=== PATIENT | male | born 1955 | race African-American/Black ===

== ENCOUNTER 2022-06-25 11:26 | Day surgery (SDC) | payer OTHER ==
[2022-06-20 13:36] LABS: Hematocrit 38.2 % (39.6-49.0); Lymphocytes % 18.7 % (15.3-44.8); MCV 107.2 fL (80-100); MPV 7.7 fL (7.6-11.3); RBC Red Blood Cell Count 3.57 M/uL (4.33-5.43)
[2022-06-20 13:38] LABS: Protime INR 1.02
[2022-06-20 13:51] LABS: SARS-CoV-2 Antigen Rapid Res Negative (Negative)
[2022-06-20 13:53] LABS: Potassium 5.1 mmol/L (3.5-5.1)
--- NOTE | 2022-06-20 13:56 | RAD REPORT ---
EXAM DESCRIPTION: RAD - Chest Pa And Lat (2 Views) - 06/20/2022 1:43 pm CLINICAL HISTORY: pre op for surgery COMPARISON: Chest Pa And Lat (2 Views) dated 09/19/2017 FINDINGS: Lines: None. Lungs: No evidence of edema or pneumonia. Pleural: No significant pleural effusions or pneumothorax. Cardiac: The heart size is within normal limits. Bones: No acute fractures. Other: IMPRESSION: No acute cardiopulmonary disease.
[2022-06-20 14:03] LABS: Blood Morphology Comment NOTED (NOT SEEN); Platelet Estimate ADEQ; White Blood Cell Scan OK (OK)
[2022-06-20 14:04] LABS: Macrocytosis 1+
--- NOTE | 2022-06-22 06:25 | EKG ---
Test Date: 2022-06-20 Test Time: 12:45:12 Delivery Helper: RORY MEASUREMENT RESULTS: Intervals: Rate: 64 NH: 128 QRSD: 80 QT: 392 QTc: 404 [place]: P: 59 NH: 128 QRS: 6 T: 44 INTERPRETIVE STATEMENTS: Sinus rhythm with premature supraventricular complexes Possible Left atrial enlargement Low voltage QRS Borderline ECG No previous ECG available for comparison Electronically Signed On 06-22-22 06:22:44 CDT by Jl Castillo
[~2022-06-25 11:26] MED LIST: AMPICILLIN SODIUM 2 GM in NA CHLORIDE 0.9% 100 ML IVPB ONE; Gentamicin Inj 160 MG in NA CHLORIDE 0.9% 100 ML IV ONE
[2022-06-25] MEDS ORDERED: NA CHLORIDE 0.9% 1,000 ML ONE (11:53)
[2022-06-25] MEDS ORDERED: ACETAMINOPHEN 500 MG TAB ONE (13:28)
[2022-06-25] MEDS ORDERED: FENTANYL CITR 100 MCG/2 ML ONE ×2 (13:43→14:28)
[2022-06-25] MEDS ORDERED: MIDAZOLAM HCL 2 MG/2 ML INJ ONE (13:43)
[2022-06-25] MEDS ORDERED: LIDOCAINE 1% MPF 5 ML VIAL ONE (13:44)
[2022-06-25] MEDS ORDERED: propofoL 200 MG/20 ML VIAL IV ONE (14:04)
[2022-06-25] MEDS ORDERED: dexAMETHasone 10 MG/ML VIAL ONE (14:27)
[2022-06-25] MEDS ORDERED: ONDANSETRON 4 MG/2 ML VIAL ONE (14:28)
[2022-06-25] MEDS ORDERED: OPIUM/BELLADONNA SUPPOS (30-16.2 MG) PR ONE ×2 (15:29→15:37)
[2022-06-25] MEDS ORDERED: CODEINE 30MG/APAP 300MG TAB PO PRN (15:37)
[2022-06-25] MEDS ORDERED: PHENAZOPYRIDINE 100MG TAB PO ONE (15:37)
[2022-06-25 16:13] VITALS: TEMP 97.1
[2022-06-25 18:24] VITALS: BP 136/81; O2SAT 97
--- NOTE | 2022-06-26 01:27 | OP ---
Surgeon: SHEELA MORALES Preoperative Diagnosis: Benign prostatic hypertrophy with lower urinary tract obstruction and sympto ms. Postoperative Diagnoses: 1.Benign prostatic hypertrophy with lower urinary tract obstruction and symptoms. 2.Bulbar urethral stricture. Principal Procedures: 1.Bipolar transurethral resection of the prostate. 2.Direct vision internal urethrotomy of the bulbar urethral stricture. Indication For Procedure: Mr. Obrien is a 66-year-old gentleman with type 2 diabetes, hypertension, and obstructive sleep apnea with history of multiple spinal fusions who underwent a prostate surgery by Dr. Quiroz over 4-5 years ago, now with persistent bothersome lower urinary symptoms and questionab le microscopic hematuria after evaluation with cystoscopy revealing significant residual apical later al lobar hypertrophy with regrowth of mid prostatic urethral adenoma, but a widely patent bladder nec k with some elevated bladder neck and contracture. He was counseled on the potential benefit to diff erent approaches and ultimately recommended for completion resection TURP. Procedure In Detail: The patient was consented in the preoperative holding area before being transfe rred to the operative suite where general anesthesia was induced. He was given ampicillin 2 g and ge ntamicin 2-3 mg/kg IV antimicrobial prophylaxis and Pneumoboots were provided for DVT prophylaxis. Cleo sidhu was placed in the lithotomy position, padded and secured to the table appropriately. His genitalia were prepped using Hibiclens and he was draped in standard fashion. The case was begun using urethr al sounds to dilate the meatus and fossa navicularis to 30-Uzbek. Then, using the visual obturator and the 26-Uzbek resectoscope, I was able to traverse the urethra, but encountered a point of strict ured narrowing in the bulbar urethra. With pressure, I was able to navigate beyond the urethral stri cture in the bulb and traverse the prostatic urethra before entering the bladder. The stricture was likely approximately 22-Uzbek in diameter. Once within the bladder, I was able to decompress the fl uid and urine and then survey it for any abnormal features. The bladder was free of mucosal lesion, foreign body, or stone. The ureteral orifices were orthotopic in location and the urine was clear. I was able to visualize an elevated bladder neck with a degree of contracture that was likely causing a degree of obstruction; so I began by resecting the elevated bladder neck down to the level of the trigone with the ureteral orifices in direct vision. I then continued the resection down to the leve l of the verumontanum in order to create a smooth trough. Resection was then continued into the righ t lateral lobe and continued at the bladder neck to the anterior zone of the prostate where any overh anging tissue was resected. I then continued the resection again posterolaterally to the apex of the prostate in order to remove any interdigitating lateral lobar hypertrophy there. A similar procedur e was performed on the left side of the prostate and the resection was continued until a smooth widel y patent channel was noted from the verumontanum through to the bladder neck. I then Ellik evacuated all prostate chips from within the bladder, removing any others that did not come out with the Ellik using direct vision. I then performed a careful search for bleeding and fulgurated each and all ble eding vessels throughout the prostatic fossa resection. Continued resection was performed where nece ssary with the bladder completely decompressed and additional adenomatous intrusion into the urethra was noted. Those chips were also Ellik evacuated from the bladder or removed under direct vision, an za I carefully fulgurated any and all bleeding vessels with his bladder completely decompressed. As a result, with his bladder decompressed and no fluid inflow and no ongoing bleeding noted, I then refi lled his bladder and retracted the scope into the bulbar urethra beyond the striated sphincter. The point of strictured narrowing, that had previously been noted, was again identified having been dilat ed by passing the scope; so utilizing the loop and brief bursts of cut activity, I incised the strict ured region using the bipolar loop at the 5 and the 7 o'clock positions, opening the strictured area such that it was widely patent. I was then able to navigate easily beyond the strictured region and enter the bladder, which was left full. I then removed the resectoscope and was able to easily pass a 22-Uzbek 3-way José catheter into his bladder. I placed 30 cc of sterile water in the balloon, a nd the catheter was connected to slow drip CBI. He was then taken out of the lithotomy position, the catheter was placed to moderate traction, and then he was transferred to a stretcher. He was then t ransferred to the recovery room in good condition. Complications: None. Discharge Disposition: He is scheduled for catheter removal on Friday and will subsequently follow u p with me in 3 months unless there are any intervening issues, which require sooner attention after a bout a month of anticipated initial recovery. RODO/WHITNEY Voice ID: [id number] Report ID: [id number]
== END 2022-06-25 17:25 | disposition home or self-care (01) ==
LOC: OR 11:26
PROVIDERS: ATTEND Urology
PROC: 0VT08ZZ Resection of Prostate, Via Natural or Artificial Opening Endoscopic (ICD-10-PCS; principal; 2022-06-25 13:30)
PROC: 0TND8ZZ Release Urethra, Via Natural or Artificial Opening Endoscopic (ICD-10-PCS; 2022-06-25 13:30)
DX: N40.1 Benign prostatic hyperplasia with lower urinary tract symptoms (principal); N35.912 Unspecified bulbous urethral stricture, male; Z20.822 Contact with and (suspected) exposure to COVID-19; I10 Essential (primary) hypertension; E11.9 Type 2 diabetes mellitus without complications; G47.33 Obstructive sleep apnea (adult) (pediatric)
CPT/HCPCS: 93005; 87088; 85025; 87086; 80048; 36415; 85610; 82947; 88305; 71046; 87811; 52601; J2704; J1580; J2250; J3010 ×2; J1100; J7030; J2405; J0290

== ENCOUNTER 2022-11-25 18:04 | Emergency (ER) | payer OTHER ==
--- OUTSIDE RECORDS SUMMARY | 2022-11-25 18:09 | XMS REPORT | Continuity of Care Document ---
:1955 Author Organization [facility] t Address [address] [place] [address] Care Team Providers Name Role Phone Eileen Saenz MD Primary Care Physician Eileen Saenz Attending Clinician Unavailable EVELIO Attending Clinician Unavailable Leo Arias MD Attending Clinician MD LEO ARIAS Attending Clinician Unavailable JOVAN CHAPMAN Attending Clinician Unavailable ESMER ALBA Attending Clinician Unavailable EVELIO Admitting Clinician Unavailable LEO ARIAS Admitting Clinician Unavailable MD LEO ARIAS Admitting Clinician Unavailable Payers Payer Name Policy Type Policy Number Effective Date Expiration Date S sinan [facility] - [id number] [facility] (MEDICARE REPLACEMENT/ADVA NTAGE - PPO) [place] [id number] [facility] [id number] HEALTHCARE (MEDICARE REPLACEMENT/ADVA NTAGE - PPO) Problems Condition Condition Condition Status Onset Resolution Last Treating Co mments Source Name Details Category Date Date Treatment Clinician Date Rib pain Rib Pain Problem Active 2021-12 Sween y 12-02 [facility] 00:[facility]: ty 00 [facility] Osteoarthr Osteoarthr Problem Active S wejulissay itis itis 12-04 [facility]i 00:00: ty 00 [facility] 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 Added automatic ally from request for surgery [id number] Carpal Carpal Disease Active Overview: Method i tunnel tunnel 9-[address] syndrome syndrome 00:00: g of this Hos suzette of left of left 00 note l wrist wrist might be different from the original. Added automatic ally from request for surgery [id number] Pain in Pain in Problem Active [facility] left arm Left Arm 8-02 Commun i 00:00: ty 00 [facility] Clin[facility] Paresthesi Paresthesi Problem Active S weeny a of upper a of Upper 802 Co mmuni limb Limb 00:00: ty 00 [facility] Clin[facility] Post-herpe Post-herpe Problem Active S weeny tic tic 727 Communi neuritis Neuritis 00:00: ty 00 [facility] Clin[facility] Obstructiv Obstructiv Problem Active S weeny e sleep e Sleep 06-26 Communi apnea Apnea 00:00: ty syndrome Syndrome 00 Hospit a l Clinics Hypoxemia Hypoxemia Problem Active [facility] 7-27 [facility] 00:00: ty 00 [facility] Herpes Herpes Problem Active [facility] zoster Zoster 7-12 [facility]i 00:00: ty 00 [facility] Tendinitis Tendinitis Problem Active S weeny 6-16 Communi 00:00: ty 00 [facility] Dyspnea Dyspnea Problem Active [facility] 5-13 [facility]i 00:00: ty 00 [facility] Pain of Pain of Problem Active [facility] left Left 5-03 [facility]i shoulder Shoulder 00:00: ty joint Joint 00 Hospita l Clinics Vitamin D Vitamin D Problem Active [place] deficiency Deficiency 2-02 Co mmuni 00:00: ty 00 [facility] Clin[facility] Screening Screening Problem Active [place] for for 1-27 [facility]i malignant Malignant 00:00: ty neoplasm Neoplasm 00 Hospit a of of l prostate Prostate Clinic s Pain in Pain in Problem Active 2019-12 [facility] lumbar Lumbar 0-12 [facility] spine Spine 00:00: ty 00 [facility]ospita l Clinics Impotence Impotence Problem Active [place] [facility] 5-27 Communi 00:00: ty 00 [facility] Insect Insect Problem Active 2019- [facility] bite - Bite - 5-27 Communi wound Wound 00:00: ty 00 [facility] Cyst of Cyst of Problem Active [facility] face Face 1-15 Communi 00:00: ty 00 [facility] Thoracic Thoracic Problem Active 2018- Sween y back pain Back Pain 0-15 Comm uni 00:00: ty 00 [facility] Left upper Left Upper Problem Active 2019- S weeny quadrant Quadrant 0-02 Commun i pain Pain 00:00: ty 00 [facility] Left flank Left Flank Problem Active 2018- S weeny pain Pain 0-02 Communi 00:00: ty 00 [facility] Malaise Malaise Problem Active [facility] 6-20 Communi 00:00: ty 00 [facility] Right Right Problem Active 2018-0 [facility] flank pain Flank Pain 3-19 Co mmuni 00:00: ty 00 [facility] Degenerati Degenerati Problem Active S weeny on of on of - Communi cervical Cervical 00:00: ty interverte Interverte 00 Ho spita bral disc bral Disc l Clinics Prominent Prominent Problem Active [place] arm veins Arm Veins 9-11 Comm uni 00:00: ty 00 [facility] Type 2 Type 2 Problem Active [facility] diabetes Diabetes 6-20 Commun i mellitus Mellitus 00:00: ty without without 00 [facility] complicati Complicati l on on Clinics Essential Essential Problem Active [place] hypertensi Hypertensi 6-20 Co mmuni on on 00:00: ty 00 [facility] Neck pain Neck Pain Problem Active [place] 6-20 Communi 00:00: ty 00 [facility] Syncope Syncope Problem Active [facility] 6-20 Communi 00:00: ty 00 [facility] [id number] ED Problem Common (erectile Spirit dysfunctio - [facility] n) of [facility] [id number] OAB Problem Common (overactiv Spirit e bladder) - [facility] [id number] Lower Problem Common urinary Spirit tract - [facility] [id number] Urge Problem Common incontinen Spirit ce [facility] [id number] BPH loc w Problem Com mon urin Spirit obs/LUTS [facility] [id number] S/P TURP Problem Comm on Spirit [facility] [id number] Painful Problem Commo n bladder [facility] spasm [facility] Neurogenic Bladder Problem Comm on dysfunctio neurogenes Sp obdulia n of the is [facility] urinary [facility] [id number] Acute Problem Common lower UTI [facility] Wears Wears Disease Active Overview: Method i partial partial Formattin st dentures dentures g of this Hos suzette note l might be different from the original. UPPER Allergies, Adverse Reactions, Alerts This patient has no known allergies or adverse reactions. Family History Family Member Diagnosis Comments Start Date Stop Date Source Natural father Cancer [facility] Social History Social Habit Start Date Stop Date Quantity Comments Source History of Tobacco Common Spirit - Use [facility] Alcohol intake 2021-08-28 2021-08-28 Current drinker Metho dist 00:00:00 00:00:00 of [facility] Alcohol Comment 2021-08-21 2021-08-21 SOCIAL Yarsani 00:00:00 00:00:00 Hospital Tobacco use and 2021-08-16 2021-08-16 Smokeless tobacco Me thodist exposure 00:00:00 00:00:00 non-user Hospital Cigarettes smoked 2021-08-16 2021-08-16 [facility] current (pack per 00:00:00 00:00:00 [facility] l day) - Reported Cigarette 2021-08-16 2021-08-16 Yarsani pack-years 00:00:00 00:00:00 Hospital Sex Ass[birth year] At [birth year] Yarsani 00:00:00 00:00:00 Hospital Smoking Status Start Date Stop Date Source Current Every Day [facility] Smoker Hospital Clinics Never Smoker [facility] nter Ex-smoker 2021-08-16 00:00:00 2021-08-16 [facility] F[facility] Start Stop Current Ordering Indication Dosage Frequency Signature Comments Components Source Medication Medication Date Date Medication? Clinician (SIG) Name Name Ramiro 10 VESIcare 10 2021- No 1{table QD VESIcare MG MG 8-30 11- t} 10 MG 00:00: 00:00 00 :00 VESIcare 10 VESIcare 10 2021- No 1{table QD VESIcare MG MG 8-30 11- t} 10 MG 00:00: 00:00 00 :00 Tadalafil Tadalafil 2022- No Tadalafil 20 MG 20 MG 4-20 - 20 MG 00:00: 00:00 00 :00 Tadalafil Tadalafil 2022- No Tadalafil 20 MG 20 MG 4-20 - 20 MG 00:00: 00:00 00 :00 Flomax 0.4 Flomax 0.4 2021- No 1{capsu QD Flomax 0.4 MG MG 4-20 -15 le} MG 00:00: 00:00 00 :00 ibuprofen-f 2020-12- No 800mg [id number] Take 800 Methodi amotidine 2-27 02-[id number] (Duexis) 00:00: 04:59 3D mouth 3 Hospi ta 800-26.6 mg 00 :00 (three) l tablet times a day for 90 days. gabapentin 2020-12 Yes 100mg QD Take 1 Meth nancy (Neurontin) 1-[address] 100 mg 00:00: (100 mg Hospita capsule 00 total) by l mouth nightly. metFORMIN Yes 1000mg Q.5D Take 1,000 Methodi (GLUCOPHAGE 9-[address] ) 1,000 mg 12:03: mouth 2 Hosp emerson tablet 57 (two) l times a day with meals. SITagliptin Yes 100mg QD Take 100 M ethodi (JANUVIA) 9-[address] 100 MG 12:03: mouth Hospita tablet 57 daily. l losartan Yes 100mg QD Take 100 Meth nancy (COZAAR) 9-[address] 100 MG 12:03: mouth Hospita tablet 57 daily. l amLODIPine Yes 5mg QD Take 5 mg Me thodi (NORVASC) 5 -[address] mg tablet 12:03: daily. Hospit a 57 l cholecalcif Yes 1250ug Q7D Take 1,250 Methodi arvind, 9-[address] vitamin D3, 12:03: mouth once Hospita 10 mcg (400 57 a week. l unit) capsule albuterol Yes 2{puff} Inhale 2 M ethodi (PROAIR 7-[address] HFA) 90 00:00: Hospita mcg/actuati 00 l on inhaler losartan losartan No 1 Q1D losartan S weeny 100 mg 100 mg 05-01 100 mg Communi tablet Take tablet Take 00:00: tablet ty 1 tablet 1 tablet 00 Take 1 Hospi ta every day every day tablet l by oral by oral every day Clin ics route. route. by oral route. carvediloL Yes 25mg Q.5D Take 25 mg M ethodi (COREG) 25 05-[address] MG tablet 00:00: (two) Hospita 00 times a l day. Carvedilol Carvedilol No 1{table BID Carvedilol 25 MG 25 MG t_with_ 25 MG food} Metformin Metformin No 1{table BID Metformin HCl 1000 MG HCl 1000 MG t_with_ HCl 1000 meals} MG Vitamin D3 Vitamin D3 No Vitamin D3 125 MCG 125 MCG 125 MCG (5000 UT) (5000 UT) (5000 UT) amLODIPine amLODIPine No 1{table QD amLODIPine Besylate 5 Besylate 5 t} Besylate 5 MG MG MG Meloxicam Meloxicam No 1{table QD Meloxicam 15 MG 15 MG t} 15 MG Januvia 100 Januvia 100 No 1{table QD Januvia MG MG t} 100 MG Gabapentin Gabapentin No 1{capsu QD Gabapentin 300 MG 300 MG le} 300 MG Meloxicam Meloxicam No 1{table QD Meloxicam 15 MG 15 MG t} 15 MG Gabapentin Gabapentin No 1{capsu QD Gabapentin 300 MG 300 MG le} 300 MG carvedilol carvedilol No carvedilol [facility] 25 mg 25 mg 25 mg Communi tablet Take tablet Take tablet ty 1 tablet 1 tablet Take 1 Hospi ta twice a day twice a day tablet l by oral by oral twice a Clinic s route for route for day by 90 days. 90 days. oral route for 90 days. cholecalcif cholecalcif No 1capsul Q1W cholecalci [facility] arvind arvind e(s) ferol Communi (vitamin (vitamin (vitamin ty D3) 1,250 D3) 1,250 D3) 1,250 Hospita mcg (50,000 mcg (50,000 mcg l unit) unit) (50,000 Clinics capsule capsule unit) Take 1 Take 1 capsule capsule capsule Take 1 every week every week capsule by oral by oral every week route. route. by oral route. Januvia 100 Januvia 100 No Januvia [facility] mg tablet mg tablet 100 mg Com gerry TAKE 1 TAKE 1 tablet ty TABLET BY TABLET BY TAKE 1 Hos suzette MOUTH ONCE MOUTH ONCE TABLET BY l DAILY DAILY MOUTH ONCE Clinics DAILY metformin metformin No metformin [facility] 1,000 mg 1,000 mg 1,000 mg Com gerry tablet TAKE tablet TAKE tablet ty 1 TABLET BY 1 TABLET BY TAKE 1 Hospita MOUTH TWICE MOUTH TWICE TABLET BY l DAILY DAILY MOUTH Clinics TWICE DAILY carvedilol carvedilol No carvedilol [facility] 25 mg 25 mg 25 mg Communi tablet Take tablet Take tablet ty 1 tablet 1 tablet Take 1 Hospi ta twice a day twice a day tablet l by oral by oral twice a Clinic s route for route for day by 90 days. 90 days. oral route for 90 days. cholecalcif cholecalcif No 1capsul Q1W cholecalci [facility] arvind arvind e(s) ferol Communi (vitamin (vitamin (vitamin ty D3) 1,250 D3) 1,250 D3) 1,250 Hospita mcg (50,000 mcg (50,000 mcg l unit) unit) (50,000 Clinics capsule capsule unit) Take 1 Take 1 capsule capsule capsule Take 1 every week every week capsule by oral by oral every week route. route. by oral route. ibuprofen ibuprofen No 1 TID ibuprofen [facility] 800 mg 800 mg 800 mg Communi tablet Take tablet Take tablet ty 1 tablet 3 1 tablet 3 Take 1 H ospita times a day times a day tablet 3 l by oral by oral times a Clinic s route with route with day by meals. meals. oral route with meals. Januvia 100 Januvia 100 No Januvia [facility] mg tablet mg tablet 100 mg Com gerry TAKE 1 TAKE 1 tablet ty TABLET BY TABLET BY TAKE 1 Hos suzette MOUTH ONCE MOUTH ONCE TABLET BY l DAILY DAILY MOUTH ONCE Clinics DAILY metformin metformin No metformin [facility] 1,000 mg 1,000 mg 1,000 mg Com gerry tablet TAKE tablet TAKE tablet ty 1 TABLET BY 1 TABLET BY TAKE 1 Hospita MOUTH TWICE MOUTH TWICE TABLET BY l DAILY DAILY MOUTH Clinics TWICE DAILY Metformin Metformin No 1{table BID Metformin HCl 1000 MG HCl 1000 MG t_with_ HCl 1000 meals} MG carvedilol carvedilol No carvedilol [facility] 25 mg 25 mg 25 mg Communi tablet Take tablet Take tablet ty 1 tablet 1 tablet Take 1 Hospi ta twice a day twice a day tablet l by oral by oral twice a Clinic s route for route for day by 90 days. 90 days. oral route for 90 days. cholecalcif cholecalcif No 1capsul Q1W cholecalci [facility] arvind arvind e(s) ferol Communi (vitamin (vitamin (vitamin ty D3) 1,250 D3) 1,250 D3) 1,250 Hospita mcg (50,000 mcg (50,000 mcg l unit) unit) (50,000 Clinics capsule capsule unit) Take 1 Take 1 capsule capsule capsule Take 1 every week every week capsule by oral by oral every week route. route. by oral route. ibuprofen ibuprofen No ibuprofen [facility] 800 mg 800 mg 800 mg [facility]i tablet TAKE tablet TAKE tablet ty 1 TABLET BY 1 TABLET BY TAKE 1 Hospita MOUTH THREE MOUTH THREE TABLET BY l TIMES DAILY TIMES DAILY MOUTH Clinics WITH MEALS WITH MEALS THREE TIMES DAILY WITH MEALS Januvia 100 Januvia 100 No Januvia [facility] mg tablet mg tablet 100 mg Com gerry TAKE 1 TAKE 1 tablet ty TABLET BY TABLET BY TAKE 1 Hos suzette MOUTH ONCE MOUTH ONCE TABLET BY l DAILY DAILY MOUTH ONCE Clinics DAILY metformin metformin No metformin [facility] 1,000 mg 1,000 mg 1,000 mg Com gerry tablet TAKE tablet TAKE tablet ty 1 TABLET BY 1 TABLET BY TAKE 1 Hospita MOUTH TWICE MOUTH TWICE TABLET BY l DAILY DAILY MOUTH Clinics TWICE DAILY carvedilol carvedilol No carvedilol [facility] 25 mg 25 mg 25 mg Communi tablet Take tablet Take tablet ty 1 tablet 1 tablet Take 1 Hospi ta twice a day twice a day tablet l by oral by oral twice a Clinic s route for route for day by 90 days. 90 days. oral route for 90 days. cholecalcif cholecalcif No 1capsul Q1W cholecalci [facility] arvind arvind e(s) ferol Communi (vitamin (vitamin (vitamin ty D3) 1,250 D3) 1,250 D3) 1,250 Hospita mcg (50,000 mcg (50,000 mcg l unit) unit) (50,000 Clinics capsule capsule unit) Take 1 Take 1 capsule capsule capsule Take 1 every week every week capsule by oral by oral every week route. route. by oral route. ibuprofen ibuprofen No ibuprofen [facility] 800 mg 800 mg 800 mg [facility]i tablet TAKE tablet TAKE tablet ty 1 TABLET BY 1 TABLET BY TAKE 1 Hospita MOUTH THREE MOUTH THREE TABLET BY l TIMES DAILY TIMES DAILY MOUTH Clinics WITH MEALS WITH MEALS THREE TIMES DAILY WITH MEALS Januvia 100 Januvia 100 No Januvia [facility] mg tablet mg tablet 100 mg Com gerry TAKE 1 TAKE 1 tablet ty TABLET BY TABLET BY TAKE 1 Hos suzette MOUTH ONCE MOUTH ONCE TABLET BY l DAILY DAILY MOUTH ONCE Clinics DAILY Medrol Medrol No Medrol [facility] (Michael) 4 mg (Michael) 4 mg (Michael) 4 mg Communi tablets in tablets in tablets in ty a dose pack a dose pack a dose Hospita as directed as directed pack as l directed Clinics Carvedilol Carvedilol No 1{table BID Carvedilol 25 MG 25 MG t_with_ 25 MG food} metformin metformin No metformin [facility] 1,000 mg 1,000 mg 1,000 mg Com gerry tablet TAKE tablet TAKE tablet ty 1 TABLET BY 1 TABLET BY TAKE 1 Hospita MOUTH TWICE MOUTH TWICE TABLET BY l DAILY DAILY MOUTH Clinics TWICE DAILY Zanaflex 4 Zanaflex 4 No 1capsul Q6H Zanaflex 4 [facility] mg capsule mg capsule e(s) mg capsule Communi Take 1 Take 1 Take 1 ty capsule capsule capsule Hospit a every 6 every 6 every 6 l hours by hours by hours by Cli nics oral route oral route oral route as needed. as needed. as needed. carvedilol carvedilol No carvedilol [facility] 25 mg 25 mg 25 mg Communi tablet TAKE tablet TAKE tablet ty 1 TABLET BY 1 TABLET BY TAKE 1 Hospita MOUTH TWICE MOUTH TWICE TABLET BY l DAILY DAILY MOUTH Clinics TWICE DAILY cholecalcif cholecalcif No 1capsul Q1W cholecalci [facility] arvind arvind e(s) ferol Communi (vitamin (vitamin (vitamin ty D3) 1,250 D3) 1,250 D3) 1,250 Hospita mcg (50,000 mcg (50,000 mcg l unit) unit) (50,000 Clinics capsule capsule unit) Take 1 Take 1 capsule capsule capsule Take 1 every week every week capsule by oral by oral every week route. route. by oral route. ibuprofen ibuprofen No ibuprofen [facility] 800 mg 800 mg 800 mg Communi tablet TAKE tablet TAKE tablet ty 1 TABLET BY 1 TABLET BY TAKE 1 Hospita MOUTH THREE MOUTH THREE TABLET BY l TIMES DAILY TIMES DAILY MOUTH Clinics WITH MEALS WITH MEALS THREE TIMES DAILY WITH MEALS Januvia 100 Januvia 100 No Januvia [facility] mg tablet mg tablet 100 mg Com gerry TAKE 1 TAKE 1 tablet ty TABLET BY TABLET BY TAKE 1 Hos suzette MOUTH ONCE MOUTH ONCE TABLET BY l DAILY DAILY MOUTH ONCE Clinics DAILY losartan losartan No losartan [place] 100 mg 100 mg 100 mg Communi tablet TAKE tablet TAKE tablet ty 1 TABLET BY 1 TABLET BY TAKE 1 Hospita MOUTH ONCE MOUTH ONCE TABLET BY l DAILY FOR DAILY FOR MOUTH ONCE Clinics 90 DAYS 90 DAYS DAILY FOR 90 DAYS metformin metformin No metformin [facility] 1,000 mg 1,000 mg 1,000 mg Com gerry tablet TAKE tablet TAKE tablet ty 1 TABLET BY 1 TABLET BY TAKE 1 Hospita MOUTH TWICE MOUTH TWICE TABLET BY l DAILY DAILY MOUTH Clinics TWICE DAILY tizanidine tizanidine No tizanidine [facility] 4 mg 4 mg 4 mg Communi capsule capsule capsule ty TAKE 1 TAKE 1 TAKE 1 Hospita CAPSULE BY CAPSULE BY CAPSULE BY l MOUTH EVERY MOUTH EVERY MOUTH Clinics 6 HOURS 6 HOURS EVERY 6 NEEDED NEEDED HOURS NEEDED acetaminoph acetaminoph No 1 Q6H acetaminop [facility] en 300 en 300 hen 300 Communi mg-codeine mg-codeine mg-codeine ty 30 mg 30 mg 30 mg Hospita tablet Take tablet Take tablet l 1 tablet 1 tablet Take 1 Clini cs every 6 every 6 tablet hours by hours by every 6 oral route oral route hours by as needed. as needed. oral route as needed. Januvia 100 Januvia 100 No 1{table QD Januvia MG MG t} 100 MG carvedilol carvedilol No carvedilol [facility] 25 mg 25 mg 25 mg Communi tablet TAKE tablet TAKE tablet ty 1 TABLET BY 1 TABLET BY TAKE 1 Hospita MOUTH TWICE MOUTH TWICE TABLET BY l DAILY DAILY MOUTH Clinics TWICE DAILY cholecalcif cholecalcif No 1capsul Q1W cholecalci [facility] arvind arvind e(s) ferol Velma (vitamin (vitamin (vitamin ty D3) 1,250 D3) 1,250 D3) 1,250 Hospita mcg (50,000 mcg (50,000 mcg l unit) unit) (50,000 Clinics capsule capsule unit) Take 1 Take 1 capsule capsule capsule Take 1 every week every week capsule by oral by oral every week route. route. by oral route. gabapentin gabapentin No gabapentin [facility] 300 mg 300 mg 300 mg Communi capsule capsule capsule ty start with start with start with Hospita one a day one a day one a day l at bedtime at bedtime at bedtime Clinics in 5 days in 5 days in 5 days if needed if needed if needed increase to increase to increase bid bid to bid ibuprofen ibuprofen No ibuprofen [facility] 800 mg 800 mg 800 mg Communi tablet TAKE tablet TAKE tablet ty 1 TABLET BY 1 TABLET BY TAKE 1 Hospita MOUTH THREE MOUTH THREE TABLET BY l TIMES DAILY TIMES DAILY MOUTH Clinics WITH MEALS WITH MEALS THREE TIMES DAILY WITH MEALS Januvia 100 Januvia 100 No Januvia [facility] mg tablet mg tablet 100 mg Com gerry TAKE 1 TAKE 1 tablet ty TABLET BY TABLET BY TAKE 1 Hos suzette MOUTH ONCE MOUTH ONCE TABLET BY l DAILY DAILY MOUTH ONCE Clinics DAILY losartan losartan No losartan [place] 100 mg 100 mg 100 mg Communi tablet TAKE tablet TAKE tablet ty 1 TABLET BY 1 TABLET BY TAKE 1 Hospita MOUTH ONCE MOUTH ONCE TABLET BY l DAILY FOR DAILY FOR MOUTH ONCE Clinics 90 DAYS 90 DAYS DAILY FOR 90 DAYS metformin metformin No metformin [facility] 1,000 mg 1,000 mg 1,000 mg Com gerry tablet TAKE tablet TAKE tablet ty 1 TABLET BY 1 TABLET BY TAKE 1 Hospita MOUTH TWICE MOUTH TWICE TABLET BY l DAILY DAILY MOUTH Clinics TWICE DAILY tizanidine tizanidine No tizanidine [facility] 4 mg 4 mg 4 mg Communi capsule capsule capsule ty TAKE 1 TAKE 1 TAKE 1 Hospita CAPSULE BY CAPSULE BY CAPSULE BY l MOUTH EVERY MOUTH EVERY MOUTH Clinics 6 HOURS 6 HOURS EVERY 6 NEEDED NEEDED HOURS NEEDED valacyclovi valacyclovi No 1 Q12H valacyclov [facility] r 1 gram r 1 gram ir 1 gram Co mmuni tablet Take tablet Take tablet ty 1 tablet 1 tablet Take 1 Hospi ta every 12 every 12 tablet l hours by hours by every 12 Cli nics oral route. oral route. hours by oral route. acetaminoph acetaminoph No 1 Q6H acetaminop [facility] en 300 en 300 hen 300 Communi mg-codeine mg-codeine mg-codeine ty 30 mg 30 mg 30 mg Hospita tablet Take tablet Take tablet l 1 tablet 1 tablet Take 1 Clini cs every 6 every 6 tablet hours by hours by every 6 oral route oral route hours by as needed. as needed. oral route as needed. Vitamin D3 Vitamin D3 No Vitamin D3 125 MCG 125 MCG 125 MCG (5000 UT) (5000 UT) (5000 UT) carvedilol carvedilol No carvedilol [facility] 25 mg 25 mg 25 mg Communi tablet TAKE tablet TAKE tablet ty 1 TABLET BY 1 TABLET BY TAKE 1 Hospita MOUTH TWICE MOUTH TWICE TABLET BY l DAILY DAILY MOUTH Clinics TWICE DAILY cholecalcif cholecalcif No 1capsul Q1W cholecalci [facility] arvind arvind e(s) ferol Communi (vitamin (vitamin (vitamin ty D3) 1,250 D3) 1,250 D3) 1,250 Hospita mcg (50,000 mcg (50,000 mcg l unit) unit) (50,000 Clinics capsule capsule unit) Take 1 Take 1 capsule capsule capsule Take 1 every week every week capsule by oral by oral every week route. route. by oral route. gabapentin gabapentin No gabapentin [facility] 300 mg 300 mg 300 mg Communi capsule capsule capsule ty start with start with start with Hospita one a day one a day one a day l at bedtime at bedtime at bedtime Clinics in 5 days in 5 days in 5 days if needed if needed if needed increase to increase to increase bid bid to bid ibuprofen ibuprofen No ibuprofen [facility] 800 mg 800 mg 800 mg [facility]i tablet TAKE tablet TAKE tablet ty 1 TABLET BY 1 TABLET BY TAKE 1 Hospita MOUTH THREE MOUTH THREE TABLET BY l TIMES DAILY TIMES DAILY MOUTH Clinics WITH MEALS WITH MEALS THREE TIMES DAILY WITH MEALS Januvia 100 Januvia 100 No Januvia [facility] mg tablet mg tablet 100 mg Com gerry TAKE 1 TAKE 1 tablet ty TABLET BY TABLET BY TAKE 1 Hos suzette MOUTH ONCE MOUTH ONCE TABLET BY l DAILY DAILY MOUTH ONCE Clinics DAILY losartan losartan No losartan [place] 100 mg 100 mg 100 mg Communi tablet TAKE tablet TAKE tablet ty 1 TABLET BY 1 TABLET BY TAKE 1 Hospita MOUTH ONCE MOUTH ONCE TABLET BY l DAILY FOR DAILY FOR MOUTH ONCE Clinics 90 DAYS 90 DAYS DAILY FOR 90 DAYS metformin metformin No metformin [facility] 1,000 mg 1,000 mg 1,000 mg Com gerry tablet TAKE tablet TAKE tablet ty 1 TABLET BY 1 TABLET BY TAKE 1 Hospita MOUTH TWICE MOUTH TWICE TABLET BY l DAILY DAILY MOUTH Clinics TWICE DAILY tizanidine tizanidine No tizanidine [facility] 4 mg 4 mg 4 mg Communi capsule capsule capsule ty TAKE 1 TAKE 1 TAKE 1 Hospita CAPSULE BY CAPSULE BY CAPSULE BY l MOUTH EVERY MOUTH EVERY MOUTH Clinics 6 HOURS 6 HOURS EVERY 6 NEEDED NEEDED HOURS NEEDED valacyclovi valacyclovi No 1 Q12H valacyclov [facility] r 1 gram r 1 gram ir 1 gram Co mmuni tablet Take tablet Take tablet ty 1 tablet 1 tablet Take 1 Hospi ta every 12 every 12 tablet l hours by hours by every 12 Cli nics oral route. oral route. hours by oral route. acetaminoph acetaminoph No acetaminop [facility] en 300 en 300 hen 300 Communi mg-codeine mg-codeine mg-codeine ty 30 mg 30 mg 30 mg Hospita tablet TAKE tablet TAKE tablet l 1 TABLET BY 1 TABLET BY TAKE 1 Clinics MOUTH EVERY MOUTH EVERY TABLET BY 6 HOURS 6 HOURS MOUTH NEEDED NEEDED EVERY 6 HOURS NEEDED amLODIPine amLODIPine No 1{table QD amLODIPine Besylate 5 Besylate 5 t} Besylate 5 MG MG MG albuterol albuterol No albuterol [facility] sulfate HFA sulfate HFA sulfate Communi 90 90 HFA 90 ty mcg/actuati mcg/actuati mcg/actuat Hospita on aerosol on aerosol ion l inhaler inhaler aerosol Clinic s INHALE 2 INHALE 2 inhaler PUFFS BY PUFFS BY INHALE 2 MOUTH EVERY MOUTH EVERY PUFFS BY 6 HOURS 6 HOURS MOUTH EVERY 6 HOURS carvedilol carvedilol No carvedilol [facility] 25 mg 25 mg 25 mg [facility] tablet TAKE tablet TAKE tablet ty 1 TABLET BY 1 TABLET BY TAKE 1 [facility] MOUTH TWICE MOUTH TWICE TABLET BY l DAILY DAILY MOUTH Clinics TWICE DAILY cholecalcif cholecalcif No 1capsul Q1W cholecalci [facility] arvind arvind e(s) ferol [facility] (vitamin (vitamin (vitamin ty D3) 1,250 D3) 1,250 D3) 1,250 [facility] mcg (50,000 mcg (50,000 mcg l unit) unit) (50,000 Clinics capsule capsule unit) Take 1 Take 1 capsule capsule capsule Take 1 every week every week capsule by oral by oral every week route. route. by oral route. furosemide furosemide No furosemide [facility] 20 mg 20 mg 20 mg [facility] tablet TAKE tablet TAKE tablet ty 1 TABLET BY 1 TABLET BY TAKE 1 [facility] MOUTH ONCE MOUTH ONCE TABLET BY l DAILY DAILY MOUTH ONCE Clinics DAILY gabapentin gabapentin No gabapentin [facility] 300 mg 300 mg 300 mg [facility] capsule 1 capsule 1 capsule 1 ty po am and po am and po am and [facility]osp[facility] afternoon 2 afternoon 2 afternoon l at hs at hs 2 at hs Clinics hydrocodone hydrocodone No 1 Q4H hydrocodon [facility] 10 10 e 10 [facility] mg-acetamin mg-acetamin mg-acetami ty ophen 325 ophen 325 nophen 325 [facility] mg tablet mg tablet mg tablet l Take 1 Take 1 Take 1 Clinics tablet tablet tablet every 4 every 4 every 4 hours by hours by hours by oral route oral route oral route as needed. as needed. as needed. ibuprofen ibuprofen No ibuprofen [facility] 800 mg 800 mg 800 mg [facility] tablet TAKE tablet TAKE tablet ty 1 TABLET BY 1 TABLET BY TAKE 1 [facility] MOUTH THREE MOUTH THREE TABLET BY l TIMES DAILY TIMES DAILY MOUTH Clinics WITH MEALS WITH MEALS THREE TIMES DAILY WITH MEALS Januvia 100 Januvia 100 No Januvia [facility] mg tablet mg tablet 100 mg Com gerry TAKE 1 TAKE 1 tablet ty TABLET BY TABLET BY TAKE 1 [facility] suzette MOUTH ONCE MOUTH ONCE TABLET BY l DAILY DAILY MOUTH ONCE Clinics DAILY losartan losartan No losartan [place] 100 mg 100 mg 100 mg [facility] tablet TAKE tablet TAKE tablet ty 1 TABLET BY 1 TABLET BY TAKE 1 [facility] MOUTH ONCE MOUTH ONCE TABLET BY l DAILY FOR DAILY FOR MOUTH ONCE Clinics 90 DAYS 90 DAYS DAILY FOR 90 DAYS metformin metformin No metformin [facility] 1,000 mg 1,000 mg 1,000 mg Com gerry tablet TAKE tablet TAKE tablet ty 1 TABLET BY 1 TABLET BY TAKE 1 [facility] MOUTH TWICE MOUTH TWICE TABLET BY l DAILY DAILY MOUTH Clinics TWICE DAILY prednisone prednisone No prednisone [facility] 20 mg 20 mg 20 mg [facility] tablet TAKE tablet TAKE tablet ty 2 TABLETS 2 TABLETS TAKE 2 [facility] suzette BY MOUTH BY MOUTH TABLETS BY l ONCE DAILY ONCE DAILY MOUTH ONCE Clinics FOR 4 DAYS FOR 4 DAYS DAILY FOR 4 DAYS tizanidine tizanidine No tizanidine [facility] 4 mg 4 mg 4 mg [facility] capsule capsule capsule ty TAKE 1 TAKE 1 TAKE 1 [facility] CAPSULE BY CAPSULE BY CAPSULE BY l MOUTH EVERY MOUTH EVERY MOUTH Clinics 6 HOURS 6 HOURS EVERY 6 NEEDED NEEDED HOURS NEEDED valacyclovi valacyclovi No valacyclov [facility] r 1 gram r 1 gram ir 1 gram Co [facility] tablet TAKE tablet TAKE tablet ty 1 TABLET BY 1 TABLET BY TAKE 1 [facility] MOUTH EVERY MOUTH EVERY TABLET BY l 12 HOURS 12 HOURS MOUTH Clinic s EVERY 12 HOURS acetaminoph acetaminoph No acetaminop [facility] en 300 en 300 hen 300 [facility] mg-codeine mg-codeine mg-codeine ty 30 mg 30 mg 30 mg [facility] tablet TAKE tablet TAKE tablet l 1 TABLET BY 1 TABLET BY TAKE 1 Clinics MOUTH EVERY MOUTH EVERY TABLET BY 6 HOURS 6 HOURS MOUTH NEEDED NEEDED EVERY 6 HOURS NEEDED albuterol albuterol No albuterol [facility] sulfate HFA sulfate HFA sulfate [facility] 90 90 HFA 90 ty mcg/actuati mcg/actuati mcg/actuat [facility] on aerosol on aerosol ion l inhaler inhaler aerosol [facility] INHALE 2 INHALE 2 inhaler PUFFS BY PUFFS BY INHALE 2 MOUTH EVERY MOUTH EVERY PUFFS BY 6 HOURS 6 HOURS MOUTH EVERY 6 HOURS carvedilol carvedilol No carvedilol [facility] 25 mg 25 mg 25 mg [facility] tablet TAKE tablet TAKE tablet ty 1 TABLET BY 1 TABLET BY TAKE 1 [facility] MOUTH TWICE MOUTH TWICE TABLET BY l DAILY DAILY MOUTH Clinics TWICE DAILY cholecalcif cholecalcif No 1capsul Q1W cholecalci [facility] arvind arvind e(s) ferol [facility] (vitamin (vitamin (vitamin ty D3) 1,250 D3) 1,250 D3) 1,250 [facility] mcg (50,000 mcg (50,000 mcg l unit) unit) (50,000 Clinics capsule capsule unit) Take 1 Take 1 capsule capsule capsule Take 1 every week every week capsule by oral by oral every week route. route. by oral route. furosemide furosemide No furosemide [facility] 20 mg 20 mg 20 mg [facility] tablet TAKE tablet TAKE tablet ty 1 TABLET BY 1 TABLET BY TAKE 1 [facility] MOUTH ONCE MOUTH ONCE TABLET BY l DAILY DAILY MOUTH ONCE Clinics DAILY gabapentin gabapentin No gabapentin [facility] 300 mg 300 mg 300 mg [facility] capsule capsule capsule ty TAKE 1 TAKE 1 TAKE 1 [facility] CAPSULE BY CAPSULE BY CAPSULE BY l MOUTH IN MOUTH IN MOUTH IN Cli nics THE MORNING THE MORNING THE AND IN THE AND IN THE MORNING AFTERNOON AFTERNOON AND IN THE AND 2 AND 2 AFTERNOON CAPSULES AT CAPSULES AT AND 2 BEDTIME BEDTIME CAPSULES AT BEDTIME hydrocodone hydrocodone No hydrocodon [facility] 10 10 e 10 [facility] mg-acetamin mg-acetamin mg-acetami ty ophen 325 ophen 325 nophen 325 [facility] mg tablet mg tablet mg tablet l TAKE 1 TAKE 1 TAKE 1 Clinics TABLET BY TABLET BY TABLET BY MOUTH EVERY MOUTH EVERY MOUTH 4 HOURS 4 HOURS EVERY 4 NEEDED NEEDED HOURS NEEDED ibuprofen ibuprofen No ibuprofen [facility] 800 mg 800 mg 800 mg [facility] tablet TAKE tablet TAKE tablet ty 1 TABLET BY 1 TABLET BY TAKE 1 [facility] MOUTH THREE MOUTH THREE TABLET BY l TIMES DAILY TIMES DAILY MOUTH Clinics WITH MEALS WITH MEALS THREE TIMES DAILY WITH MEALS Januvia 100 Januvia 100 No Januvia [facility] mg tablet mg tablet 100 mg Com gerry TAKE 1 TAKE 1 tablet ty TABLET BY TABLET BY TAKE 1 [facility] suzette MOUTH ONCE MOUTH ONCE TABLET BY l DAILY DAILY MOUTH ONCE Clinics DAILY losartan losartan No losartan [place] 100 mg 100 mg 100 mg [facility] tablet TAKE tablet TAKE tablet ty 1 TABLET BY 1 TABLET BY TAKE 1 [facility] MOUTH ONCE MOUTH ONCE TABLET BY l DAILY FOR DAILY FOR MOUTH ONCE Clinics 90 DAYS 90 DAYS DAILY FOR 90 DAYS metformin metformin No metformin [facility] 1,000 mg 1,000 mg 1,000 mg Com g[facility] tablet TAKE tablet TAKE tablet ty 1 TABLET BY 1 TABLET BY TAKE 1 [facility] MOUTH TWICE MOUTH TWICE TABLET BY l DAILY DAILY MOUTH Clinics TWICE DAILY prednisone prednisone No prednisone [facility] 20 mg 20 mg 20 mg [facility] tablet TAKE tablet TAKE tablet ty 2 TABLETS 2 TABLETS TAKE 2 [facility] suzette BY MOUTH BY MOUTH TABLETS BY l ONCE DAILY ONCE DAILY MOUTH ONCE Clinics FOR 4 DAYS FOR 4 DAYS DAILY FOR 4 DAYS tizanidine tizanidine No tizanidine [facility] 4 mg 4 mg 4 mg [facility] capsule capsule capsule ty TAKE 1 TAKE 1 TAKE 1 [facility] CAPSULE BY CAPSULE BY CAPSULE BY l MOUTH EVERY MOUTH EVERY MOUTH Clinics 6 HOURS 6 HOURS EVERY 6 NEEDED NEEDED HOURS NEEDED valacyclovi valacyclovi No valacyclov [facility] r 1 gram r 1 gram ir 1 gram Co [facility] tablet TAKE tablet TAKE tablet ty 1 TABLET BY 1 TABLET BY TAKE 1 [facility] MOUTH EVERY MOUTH EVERY TABLET BY l 12 HOURS 12 HOURS MOUTH Clinic s EVERY 12 HOURS acetaminoph acetaminoph No acetaminop [facility] en 300 en 300 hen 300 [facility] mg-codeine mg-codeine mg-codeine ty 30 mg 30 mg 30 mg [facility] tablet TAKE tablet TAKE tablet l 1 TABLET BY 1 TABLET BY TAKE 1 Clinics MOUTH EVERY MOUTH EVERY TABLET BY 6 HOURS 6 HOURS MOUTH NEEDED NEEDED EVERY 6 HOURS NEEDED albuterol albuterol No albuterol [facility] sulfate HFA sulfate HFA sulfate [facility] 90 90 HFA 90 ty mcg/actuati mcg/actuati mcg/actuat [facility] on aerosol on aerosol ion l inhaler inhaler aerosol [facility] INHALE 2 INHALE 2 inhaler PUFFS BY PUFFS BY INHALE 2 MOUTH EVERY MOUTH EVERY PUFFS BY 6 HOURS 6 HOURS MOUTH EVERY 6 HOURS carvedilol carvedilol No carvedilol [facility] 25 mg 25 mg 25 mg [facility] tablet TAKE tablet TAKE tablet ty 1 TABLET BY 1 TABLET BY TAKE 1 [facility] MOUTH TWICE MOUTH TWICE TABLET BY l DAILY DAILY MOUTH Clinics TWICE DAILY cholecalcif cholecalcif No 1capsul Q1W cholecalci [facility] arvind arvind e(s) ferol [facility] (vitamin (vitamin (vitamin ty D3) 1,250 D3) 1,250 D3) 1,250 [facility] mcg (50,000 mcg (50,000 mcg l unit) unit) (50,000 Clinics capsule capsule unit) Take 1 Take 1 capsule capsule capsule Take 1 every week every week capsule by oral by oral every week route. route. by oral route. furosemide furosemide No furosemide [facility] 20 mg 20 mg 20 mg [facility] tablet TAKE tablet TAKE tablet ty 1 TABLET BY 1 TABLET BY TAKE 1 [facility] MOUTH ONCE MOUTH ONCE TABLET BY l DAILY DAILY MOUTH ONCE Clinics DAILY gabapentin gabapentin No gabapentin [facility] 300 mg 300 mg 300 mg [facility] capsule capsule capsule ty TAKE 1 TAKE 1 TAKE 1 [facility] CAPSULE BY CAPSULE BY CAPSULE BY l MOUTH IN MOUTH IN MOUTH IN Cli nics THE MORNING THE MORNING THE AND IN THE AND IN THE MORNING AFTERNOON AFTERNOON AND IN THE AND 2 AND 2 AFTERNOON CAPSULES AT CAPSULES AT AND 2 BEDTIME BEDTIME CAPSULES AT BEDTIME hydrocodone hydrocodone No hydrocodon [facility] 10 10 e 10 [facility] mg-acetamin mg-acetamin mg-acetami ty ophen 325 ophen 325 nophen 325 [facility] mg tablet mg tablet mg tablet l TAKE 1 TAKE 1 TAKE 1 [facility]ics TABLET BY TABLET BY TABLET BY MOUTH EVERY MOUTH EVERY MOUTH 4 HOURS 4 HOURS EVERY 4 NEEDED NEEDED HOURS NEEDED ibuprofen ibuprofen No ibuprofen [facility] 800 mg 800 mg 800 mg [facility] tablet TAKE tablet TAKE tablet ty 1 TABLET BY 1 TABLET BY TAKE 1 [facility] MOUTH THREE MOUTH THREE TABLET BY l TIMES DAILY TIMES DAILY MOUTH Clinics WITH MEALS WITH MEALS THREE TIMES DAILY WITH MEALS Januvia 100 Januvia 100 No Januvia [facility] mg tablet mg tablet 100 mg Com gerry TAKE 1 TAKE 1 tablet ty TABLET BY TABLET BY TAKE 1 [facility] suzette MOUTH ONCE MOUTH ONCE TABLET BY l DAILY DAILY MOUTH ONCE Clinics DAILY losartan losartan No losartan [facility] [place] 100 mg 100 mg 100 mg [facility] tablet TAKE tablet TAKE tablet ty 1 TABLET BY 1 TABLET BY TAKE 1 [facility] MOUTH ONCE MOUTH ONCE TABLET BY l DAILY FOR DAILY FOR MOUTH ONCE Clinics 90 DAYS 90 DAYS DAILY FOR 90 DAYS meloxicam meloxicam No meloxicam [facility] 15 mg 15 mg 15 mg [facility] tablet TAKE tablet TAKE tablet ty 1 TABLET BY 1 TABLET BY TAKE 1 [facility] MOUTH ONCE MOUTH ONCE TABLET BY l DAILY DAILY MOUTH ONCE Clinics DAILY metformin metformin No metformin [facility] 1,000 mg 1,000 mg 1,000 mg Com g[facility] tablet TAKE tablet TAKE tablet ty 1 TABLET BY 1 TABLET BY TAKE 1 [facility] MOUTH TWICE MOUTH TWICE TABLET BY l DAILY DAILY MOUTH Clinics TWICE DAILY prednisone prednisone No prednisone [facility] 20 mg 20 mg 20 mg [facility] tablet TAKE tablet TAKE tablet ty 2 TABLETS 2 TABLETS TAKE 2 [facility] suzette BY MOUTH BY MOUTH TABLETS BY l ONCE DAILY ONCE DAILY MOUTH ONCE Clinics FOR 4 DAYS FOR 4 DAYS DAILY FOR 4 DAYS tizanidine tizanidine No tizanidine [facility] 4 mg 4 mg 4 mg [facility] capsule capsule capsule ty TAKE 1 TAKE 1 TAKE 1 [facility] CAPSULE BY CAPSULE BY CAPSULE BY l MOUTH EVERY MOUTH EVERY MOUTH Clinics 6 HOURS 6 HOURS EVERY 6 NEEDED NEEDED HOURS NEEDED Tylenol Tylenol No 2 Q6H Tylenol [facility] Extra Extra Extra [facility] Strength Strength Strength ty 500 mg 500 mg 500 mg [facility] tablet Take tablet Take tablet l 2 tablets 2 tablets Take 2 Cli nics every 6 every 6 tablets hours by hours by every 6 oral route. oral route. hours by oral route. valacyclovi valacyclovi No valacyclov [facility] r 1 gram r 1 gram ir 1 gram Co [facility] tablet TAKE tablet TAKE tablet ty 1 TABLET BY 1 TABLET BY TAKE 1 [facility] MOUTH EVERY MOUTH EVERY TABLET BY l 12 HOURS 12 HOURS MOUTH Clinic s EVERY 12 HOURS amlodipine amlodipine No 1 Q1D amlodipine [facility] 5 mg tablet 5 mg tablet 5 mg C [facility] Take 1 Take 1 tablet ty tablet tablet Take 1 [facility]osp[facility] every day every day tablet l by oral by oral every day Clin ics route for route for by oral 90 days. 90 days. route for 90 days. carvedilol carvedilol No carvedilol [facility] 25 mg 25 mg 25 mg [facility] tablet TAKE tablet TAKE tablet ty 1 TABLET BY 1 TABLET BY TAKE 1 [facility] MOUTH TWICE MOUTH TWICE TABLET BY l DAILY DAILY MOUTH Clinics TWICE DAILY cholecalcif cholecalcif No 1capsul Q1W cholecalci [facility] arvind arvind e(s) ferol [facility] (vitamin (vitamin (vitamin ty D3) 1,250 D3) 1,250 D3) 1,250 [facility] mcg (50,000 mcg (50,000 mcg l unit) unit) (50,000 Clinics capsule capsule unit) Take 1 Take 1 capsule capsule capsule Take 1 every week every week capsule by oral by oral every week route. route. by oral route. Januvia 100 Januvia 100 No Januvia [facility] mg tablet mg tablet 100 mg Com g[facility] TAKE 1 TAKE 1 tablet ty TABLET BY TABLET BY TAKE 1 [facility] suzette MOUTH ONCE MOUTH ONCE TABLET BY l DAILY DAILY MOUTH ONCE Clinics DAILY losartan losartan No losartan Swe [place] 100 mg 100 mg 100 mg [facility] tablet TAKE tablet TAKE tablet ty 1 TABLET BY 1 TABLET BY TAKE 1 [facility] MOUTH ONCE MOUTH ONCE TABLET BY l DAILY FOR DAILY FOR MOUTH ONCE Clinics 90 DAYS 90 DAYS DAILY FOR 90 DAYS metformin metformin No metformin [facility] 1,000 mg 1,000 mg 1,000 mg [facility] tablet TAKE tablet TAKE tablet ty 1 TABLET BY 1 TABLET BY TAKE 1 [facility] MOUTH TWICE MOUTH TWICE TABLET BY l DAILY DAILY MOUTH Clinics TWICE DAILY amlodipine amlodipine No amlodipine [facility] 5 mg tablet 5 mg tablet 5 mg C [facility] TAKE 1 TAKE 1 tablet ty TABLET BY TABLET BY TAKE 1 [facility] su[facility]ette MOUTH ONCE MOUTH ONCE TABLET BY l DAILY FOR DAILY FOR MOUTH ONCE Clinics 90 DAYS 90 DAYS DAILY FOR 90 DAYS carvedilol carvedilol No carvedilol [facility] 25 mg 25 mg 25 mg [facility] tablet TAKE tablet TAKE tablet ty 1 TABLET BY 1 TABLET BY TAKE 1 [facility] MOUTH TWICE MOUTH TWICE TABLET BY l DAILY DAILY MOUTH Clinics TWICE DAILY cholecalcif cholecalcif No cholecalci [facility] arvind arvind ferol [facility] (vitamin (vitamin (vitamin ty D3) 1,250 D3) 1,250 D3) 1,250 [facility] mcg (50,000 mcg (50,000 mcg l unit) unit) (50,000 [facility]ics capsule capsule unit) TAKE 1 TAKE 1 capsule CAPSULE BY CAPSULE BY TAKE 1 MOUTH ONCE MOUTH ONCE CAPSULE BY A WEEK A WEEK MOUTH ONCE A WEEK gabapentin gabapentin No gabapentin [facility] 300 mg 300 mg 300 mg [facility] capsule 1 capsule 1 capsule 1 ty po am and po am and po am and [facility]osp[facility] afternoon 2 afternoon 2 afternoon l at hs at hs 2 at hs Clinics Januvia 100 Januvia 100 No Januvia [facility] mg tablet mg tablet 100 mg Com gerry TAKE 1 TAKE 1 tablet ty TABLET BY TABLET BY TAKE 1 [facility] suzette MOUTH ONCE MOUTH ONCE TABLET BY l DAILY DAILY MOUTH ONCE Clinics DAILY losartan losartan No losartan [facility] [place] 100 mg 100 mg 100 mg [facility] tablet TAKE tablet TAKE tablet ty 1 TABLET BY 1 TABLET BY TAKE 1 [facility] MOUTH ONCE MOUTH ONCE TABLET BY l DAILY FOR DAILY FOR MOUTH ONCE Clinics 90 DAYS 90 DAYS DAILY FOR 90 DAYS metformin metformin No metformin [facility] 1,000 mg 1,000 mg 1,000 mg [facility] tablet TAKE tablet TAKE tablet ty 1 TABLET BY 1 TABLET BY TAKE 1 [facility] MOUTH TWICE MOUTH TWICE TABLET BY l DAILY DAILY MOUTH Clinics TWICE DAILY tramadol 50 tramadol 50 No tramadol [facility] mg tablet mg tablet 50 mg Comm uni TAKE 1 TAKE 1 tablet ty TABLET BY TABLET BY TAKE 1 [facility] su[facility]ette MOUTH EVERY MOUTH EVERY TABLET BY l 6 HOURS 6 HOURS MOUTH Cl inics NEEDED FOR NEEDED FOR EVERY 6 MODERATE MODERATE HOURS PAIN FOR UP PAIN FOR UP NEEDED FOR TO 5 DAYS TO 5 DAYS MODERATE PAIN FOR UP TO 5 DAYS amlodipine amlodipine No amlodipine [facility] 5 mg tablet 5 mg tablet 5 mg [facility] TAKE 1 TAKE 1 tablet ty TABLET BY TABLET BY TAKE 1 [facility] su[facility]ette MOUTH ONCE MOUTH ONCE TABLET BY l DAILY FOR DAILY FOR MOUTH ONCE Clinics 90 DAYS 90 DAYS DAILY FOR 90 DAYS carvedilol carvedilol No carvedilol [facility] 25 mg 25 mg 25 mg [facility] tablet TAKE tablet TAKE tablet ty 1 TABLET BY 1 TABLET BY TAKE 1 [facility] MOUTH TWICE MOUTH TWICE TABLET BY l DAILY DAILY MOUTH Clinics TWICE DAILY cholecalcif cholecalcif No cholecalci [facility] arvind arvind ferol [facility] (vitamin (vitamin (vitamin ty D3) 1,250 D3) 1,250 D3) 1,250 [facility] mcg (50,000 mcg (50,000 mcg l unit) unit) (50,000 Clinics capsule capsule unit) TAKE 1 TAKE 1 capsule CAPSULE BY CAPSULE BY TAKE 1 MOUTH ONCE MOUTH ONCE CAPSULE BY A WEEK A WEEK MOUTH ONCE A WEEK gabapentin gabapentin No gabapentin [facility] 300 mg 300 mg 300 mg [facility] capsule capsule capsule ty TAKE 1 TAKE 1 TAKE 1 [facility] CAPSULE BY CAPSULE BY CAPSULE BY l MOUTH IN MOUTH IN MOUTH IN Cli nics THE MORNING THE MORNING THE AND 1 AND 1 MORNING CAPSULE IN CAPSULE IN AND 1 THE THE CAPSULE IN AFTERNOON AFTERNOON THE THEN 2 THEN 2 AFTERNOON CAPSULES AT CAPSULES AT THEN 2 BEDTIME BEDTIME CAPSULES AT BEDTIME Januvia 100 Januvia 100 No Januvia [facility] mg tablet mg tablet 100 mg Com [facility] TAKE 1 TAKE 1 tablet ty TABLET BY TABLET BY TAKE 1 [facility] su[facility]ette MOUTH ONCE MOUTH ONCE TABLET BY l DAILY DAILY MOUTH ONCE Clinics DAILY meloxicam meloxicam No meloxicam [facility] 15 mg 15 mg 15 mg [facility] tablet TAKE tablet TAKE tablet ty 1 TABLET BY 1 TABLET BY TAKE 1 [facility] MOUTH ONCE MOUTH ONCE TABLET BY l DAILY FOR DAILY FOR MOUTH ONCE Clinics 30 DAYS 30 DAYS DAILY FOR 30 DAYS metformin metformin No metformin [facility] 1,000 mg 1,000 mg 1,000 mg [facility] tablet TAKE tablet TAKE tablet ty 1 TABLET BY 1 TABLET BY TAKE 1 [facility] MOUTH TWICE MOUTH TWICE TABLET BY l DAILY DAILY MOUTH Clinics TWICE DAILY amlodipine amlodipine No amlodipine [facility] 5 mg tablet 5 mg tablet 5 mg [facility] TAKE 1 TAKE 1 tablet ty TABLET BY TABLET BY TAKE 1 [facility] su[facility]ette MOUTH ONCE MOUTH ONCE TABLET BY l DAILY FOR DAILY FOR MOUTH ONCE Clinics 90 DAYS 90 DAYS DAILY FOR 90 DAYS carvedilol carvedilol No carvedilol [facility] 25 mg 25 mg 25 mg [facility] tablet TAKE tablet TAKE tablet ty 1 TABLET BY 1 TABLET BY TAKE 1 [facility] MOUTH TWICE MOUTH TWICE TABLET BY l DAILY DAILY MOUTH Clinics TWICE DAILY cholecalcif cholecalcif No cholecalci [facility] arvind gold [facility] (vitamin (vitamin (vitamin ty D3) 1,250 D3) 1,250 D3) 1,250 [facility] mcg (50,000 mcg (50,000 mcg l unit) unit) (50,000 Clinics capsule capsule unit) TAKE 1 TAKE 1 capsule CAPSULE BY CAPSULE BY TAKE 1 MOUTH ONCE MOUTH ONCE CAPSULE BY A WEEK A WEEK MOUTH ONCE A WEEK gabapentin gabapentin No gabapentin [facility] 300 mg 300 mg 300 mg [facility] capsule capsule capsule ty TAKE 1 TAKE 1 TAKE 1 [facility] CAPSULE BY CAPSULE BY CAPSULE BY l MOUTH IN MOUTH IN MOUTH IN Cli nics THE MORNING THE MORNING THE AND 1 AND 1 MORNING CAPSULE IN CAPSULE IN AND 1 THE THE CAPSULE IN AFTERNOON AFTERNOON THE THEN 2 THEN 2 AFTERNOON CAPSULES AT CAPSULES AT THEN 2 BEDTIME BEDTIME CAPSULES AT BEDTIME Januvia 100 Januvia 100 No Januvia [facility] mg tablet mg tablet 100 mg [facility] TAKE 1 TAKE 1 tablet ty TABLET BY TABLET BY TAKE 1 [facility] su[facility]ette MOUTH ONCE MOUTH ONCE TABLET BY l DAILY DAILY MOUTH ONCE Clinics DAILY losartan losartan No losartan [facility] [place] 100 mg 100 mg 100 mg [facility] tablet TAKE tablet TAKE tablet ty 1 TABLET BY 1 TABLET BY TAKE 1 [facility] MOUTH ONCE MOUTH ONCE TABLET BY l DAILY DAILY MOUTH ONCE Clinics DAILY meloxicam meloxicam No meloxicam [facility] 15 mg 15 mg 15 mg [facility] tablet TAKE tablet TAKE tablet ty 1 TABLET BY 1 TABLET BY TAKE 1 [facility] MOUTH ONCE MOUTH ONCE TABLET BY l DAILY FOR DAILY FOR MOUTH ONCE Clinics 30 DAYS 30 DAYS DAILY FOR 30 DAYS metformin metformin No metformin [facility] 1,000 mg 1,000 mg 1,000 mg [facility] tablet TAKE tablet TAKE tablet ty 1 TABLET BY 1 TABLET BY TAKE 1 [facility] MOUTH TWICE MOUTH TWICE TABLET BY l DAILY DAILY MOUTH Clinics TWICE DAILY acetaminoph acetaminoph No acetaminop [facility] en 300 en 300 hen 300 [facility] mg-codeine mg-codeine mg-codeine ty 30 mg 30 mg 30 mg [facility] tablet TAKE tablet TAKE tablet l 1 TABLET BY 1 TABLET BY TAKE 1 Clinics MOUTH EVERY MOUTH EVERY TABLET BY 6 HOURS 6 HOURS MOUTH NEEDED FOR NEEDED FOR EVERY 6 PAIN PAIN HOURS NEEDED FOR PAIN amlodipine amlodipine No amlodipine [facility] 5 mg tablet 5 mg tablet 5 mg [facility] TAKE 1 TAKE 1 tablet ty TABLET BY TABLET BY TAKE 1 [facility] su[facility] MOUTH ONCE MOUTH ONCE TABLET BY l DAILY FOR DAILY FOR MOUTH ONCE Clinics 90 DAYS 90 DAYS DAILY FOR 90 DAYS carvedilol carvedilol No carvedilol [facility] 25 mg 25 mg 25 mg [facility] tablet TAKE tablet TAKE tablet ty 1 TABLET BY 1 TABLET BY TAKE 1 [facility] MOUTH TWICE MOUTH TWICE TABLET BY l DAILY DAILY MOUTH Clinics TWICE DAILY cholecalcif cholecalcif No cholecalci [facility] arvind arvind ferol [facility] (vitamin (vitamin (vitamin ty D3) 1,250 D3) 1,250 D3) 1,250 [facility] mcg (50,000 mcg (50,000 mcg l unit) unit) (50,000 Clinics capsule capsule unit) TAKE 1 TAKE 1 capsule CAPSULE BY CAPSULE BY TAKE 1 MOUTH ONCE MOUTH ONCE CAPSULE BY A WEEK A WEEK MOUTH ONCE A WEEK gabapentin gabapentin No gabapentin [facility] 300 mg 300 mg 300 mg [facility] capsule capsule capsule ty TAKE 1 TAKE 1 TAKE 1 [facility] CAPSULE BY CAPSULE BY CAPSULE BY l MOUTH IN MOUTH IN MOUTH IN Cli nics THE MORNING THE MORNING THE AND 1 AND 1 MORNING CAPSULE IN CAPSULE IN AND 1 THE THE CAPSULE IN AFTERNOON AFTERNOON THE THEN 2 THEN 2 AFTERNOON CAPSULES AT CAPSULES AT THEN 2 BEDTIME BEDTIME CAPSULES AT BEDTIME Januvia 100 Januvia 100 No Januvia [facility] mg tablet mg tablet 100 mg [facility] Take 1 Take 1 tablet ty tablet by tablet by Take 1 [facility] su[facility] mouth once mouth once tablet by l daily daily mouth once Clinics daily losartan losartan No losartan [facility] [place] 100 mg 100 mg 100 mg [facility] tablet TAKE tablet TAKE tablet ty 1 TABLET BY 1 TABLET BY TAKE 1 [facility] MOUTH ONCE MOUTH ONCE TABLET BY l DAILY DAILY MOUTH ONCE Clinics DAILY metformin metformin No metformin [facility] 1,000 mg 1,000 mg 1,000 mg Com [facility] tablet Take tablet Take tablet ty 1 tablet by 1 tablet by Take 1 [facility] mouth twice mouth twice tablet by l daily daily mouth Clinics twice daily oxybutynin oxybutynin No oxybutynin [facility] chloride ER chloride ER chloride [facility] 5 mg 5 mg ER 5 mg ty tablet,exte tablet,exte tablet,ext [facility]osp[facility] nded nded ended l release 24 release 24 release 24 Clinics hr TAKE 1 hr TAKE 1 hr TAKE 1 TABLET BY TABLET BY TABLET BY MOUTH ONCE MOUTH ONCE MOUTH ONCE DAILY DAILY DAILY solifenacin solifenacin No solifenaci [facility] 10 mg 10 mg n 10 mg [facility] tablet TAKE tablet TAKE tablet ty 1 TABLET BY 1 TABLET BY TAKE 1 [facility] MOUTH ONCE MOUTH ONCE TABLET BY l DAILY DAILY MOUTH ONCE Clinics DAILY tadalafil tadalafil No tadalafil [facility] 20 mg 20 mg 20 mg [facility] tablet TAKE tablet TAKE tablet ty 1 TABLET BY 1 TABLET BY TAKE 1 [facility] MOUTH ONCE MOUTH ONCE TABLET BY l DAILY DAILY MOUTH ONCE C linics NEEDED NEEDED DAILY NEEDED tamsulosin tamsulosin No tamsulosin [facility] 0.4 mg 0.4 mg 0.4 mg [facility] capsule capsule capsule ty TAKE 1 TAKE 1 TAKE 1 [facility] CAPSULE BY CAPSULE BY CAPSULE BY l MOUTH ONCE MOUTH ONCE MOUTH ONCE Clinics DAILY DAILY DAILY acetaminoph acetaminoph No acetaminop [facility] en 300 en 300 hen 300 [facility] mg-codeine mg-codeine mg-codeine ty 30 mg 30 mg 30 mg [facility] tablet TAKE tablet TAKE tablet l 1 TABLET BY 1 TABLET BY TAKE 1 Clinics MOUTH EVERY MOUTH EVERY TABLET BY 6 HOURS 6 HOURS MOUTH NEEDED FOR NEEDED FOR EVERY 6 PAIN PAIN HOURS NEEDED FOR PAIN amlodipine amlodipine No amlodipine [facility] 5 mg tablet 5 mg tablet 5 mg [facility] TAKE 1 TAKE 1 tablet ty TABLET BY TABLET BY TAKE 1 [facility] su[facility] MOUTH ONCE MOUTH ONCE TABLET BY l DAILY FOR DAILY FOR MOUTH ONCE Clinics 90 DAYS 90 DAYS DAILY FOR 90 DAYS carvedilol carvedilol No carvedilol [facility] 25 mg 25 mg 25 mg [facility] tablet TAKE tablet TAKE tablet ty 1 TABLET BY 1 TABLET BY TAKE 1 [facility] MOUTH TWICE MOUTH TWICE TABLET BY l DAILY DAILY MOUTH Clinics TWICE DAILY cholecalcif cholecalcif No cholecalci [facility] arvind arvind ferol [facility] (vitamin (vitamin (vitamin ty D3) 1,250 D3) 1,250 D3) 1,250 [facility] mcg (50,000 mcg (50,000 mcg l unit) unit) (50,000 Clinics capsule capsule unit) TAKE 1 TAKE 1 capsule CAPSULE BY CAPSULE BY TAKE 1 MOUTH ONCE MOUTH ONCE CAPSULE BY A WEEK A WEEK MOUTH ONCE A WEEK gabapentin gabapentin No gabapentin [facility] 300 mg 300 mg 300 mg [facility] capsule capsule capsule ty TAKE 1 TAKE 1 TAKE 1 [facility] CAPSULE BY CAPSULE BY CAPSULE BY l MOUTH IN MOUTH IN MOUTH IN Cli nics THE MORNING THE MORNING THE AND 1 AND 1 MORNING CAPSULE IN CAPSULE IN AND 1 THE THE CAPSULE IN AFTERNOON AFTERNOON THE THEN 2 THEN 2 AFTERNOON CAPSULES AT CAPSULES AT THEN 2 BEDTIME BEDTIME CAPSULES AT BEDTIME Januvia 100 Januvia 100 No Januvia [facility] mg tablet mg tablet 100 mg [facility] Take 1 Take 1 tablet ty tablet by tablet by Take 1 [facility] mouth once mouth once tablet by l daily daily mouth once Clinics daily losartan losartan No losartan [facility] 100 mg 100 mg 100 mg [facility] tablet TAKE tablet TAKE tablet ty 1 TABLET BY 1 TABLET BY TAKE 1 [facility] MOUTH ONCE MOUTH ONCE TABLET BY l DAILY DAILY MOUTH ONCE Clinics DAILY metformin metformin No metformin [facility] 1,000 mg 1,000 mg 1,000 mg Com [facility] tablet Take tablet Take tablet ty 1 tablet by 1 tablet by Take 1 [facility]osp[facility] mouth twice mouth twice tablet by l daily daily mouth Clinics twice daily oxybutynin oxybutynin No oxybutynin [place] chloride ER chloride ER chloride Communi 5 mg 5 mg ER 5 mg ty tablet,exte tablet,exte tablet,ext Hospita nded nded ended l release 24 release 24 release 24 Clinics hr TAKE 1 hr TAKE 1 hr TAKE 1 TABLET BY TABLET BY TABLET BY MOUTH ONCE MOUTH ONCE MOUTH ONCE DAILY DAILY DAILY solifenacin solifenacin No solifenaci [place] 10 mg 10 mg n 10 mg Communi tablet TAKE tablet TAKE tablet ty 1 TABLET BY 1 TABLET BY TAKE 1 Hospita MOUTH ONCE MOUTH ONCE TABLET BY l DAILY DAILY MOUTH ONCE Clinics DAILY tadalafil tadalafil No tadalafil [place] 20 mg 20 mg 20 mg Communi tablet TAKE tablet TAKE tablet ty 1 TABLET BY 1 TABLET BY TAKE 1 Hospita MOUTH ONCE MOUTH ONCE TABLET BY l DAILY DAILY MOUTH ONCE C linics NEEDED NEEDED DAILY NEEDED tamsulosin tamsulosin No tamsulosin [place] 0.4 mg 0.4 mg 0.4 mg Communi capsule capsule capsule ty TAKE 1 TAKE 1 TAKE 1 Hospita CAPSULE BY CAPSULE BY CAPSULE BY l MOUTH ONCE MOUTH ONCE MOUTH ONCE Clinics DAILY DAILY DAILY carvedilol carvedilol No carvedilol [place] 25 mg 25 mg 25 mg Communi tablet Take tablet Take tablet ty 1 tablet 1 tablet Take 1 Hospi ta twice a day twice a day tablet l by oral by oral twice a Clinic s route for route for day by 90 days. 90 days. oral route for 90 days. Januvia 100 Januvia 100 No Januvia [place] mg tablet mg tablet 100 mg Com gerry Take 1 Take 1 tablet ty tablet tablet Take 1 Hospita every day every day tablet l by oral by oral every day Clin ics route for route for by oral 90 days. 90 days. route for 90 days. metformin metformin No 1 BID metformin [place] 1,000 mg 1,000 mg 1,000 mg Com gerry tablet Take tablet Take tablet ty 1 tablet 1 tablet Take 1 Hospi ta twice a day twice a day tablet l by oral by oral twice a Clinic s route for route for day by 90 days. 90 days. oral route for 90 days. Immunizations Ordered Immunization Filled Immunization Date Status Commen ts Source Name Name influenza, influenza, 2022-10-03 Completed [place] [facility] injectable, injectable, 10:02:31 [facility] Cli nics quadrivalent, quadrivalent, preservative free preservative free SARS-COV-2 SARS-COV-2 2021-02-17 Completed [place] [facility] (COVID-19) vaccine, (COVID-19) vaccine, 00:00:00 Hospital Clinics UNSPECIFIED UNSPECIFIED SARS-COV-2 SARS-COV-2 2021-02-17 Completed [place] [facility] (COVID-19) vaccine, (COVID-19) vaccine, 00:00:00 Hospital Clinics UNSPECIFIED UNSPECIFIED SARS-COV-2 SARS-COV-2 2021-02-17 Completed [place] [facility] (COVID-19) vaccine, (COVID-19) vaccine, 00:00:00 Hospital Clinics UNSPECIFIED UNSPECIFIED SARS-COV-2 SARS-COV-2 2021-02-17 Completed [place] [facility] (COVID-19) vaccine, (COVID-19) vaccine, 00:00:00 Hospital Clinics UNSPECIFIED UNSPECIFIED SARS-COV-2 SARS-COV-2 2021-02-17 Completed [place] [facility] (COVID-19) vaccine, (COVID-19) vaccine, 00:00:00 Hospital Clinics UNSPECIFIED UNSPECIFIED SARS-COV-2 SARS-COV-2 2021-02-17 Completed [place] [facility] (COVID-19) vaccine, (COVID-19) vaccine, 00:00:00 Hospital Clinics UNSPECIFIED UNSPECIFIED SARS-COV-2 SARS-COV-2 2021-02-17 Completed [place] [facility] (COVID-19) vaccine, (COVID-19) vaccine, 00:00:00 Hospital Clinics UNSPECIFIED UNSPECIFIED SARS-COV-2 SARS-COV-2 2021-02-17 Completed [place] [facility] (COVID-19) vaccine, (COVID-19) vaccine, 00:00:00 Hospital Clinics UNSPECIFIED UNSPECIFIED SARS-COV-2 SARS-COV-2 2021-02-17 Completed [place] [facility] (COVID-19) vaccine, (COVID-19) vaccine, 00:00:00 Hospital Clinics UNSPECIFIED UNSPECIFIED SARS-COV-2 SARS-COV-2 2021-02-17 Completed [place] [facility] (COVID-19) vaccine, (COVID-19) vaccine, 00:00:00 Hospital Clinics UNSPECIFIED UNSPECIFIED SARS-COV-2 SARS-COV-2 2021-02-17 Completed [place] [facility] (COVID-19) vaccine, (COVID-19) vaccine, 00:00:00 [facility] UNSPECIFIED UNSPECIFIED COVID-19 COVID-19 2021-02-17 Completed [place] [facility] (SARS-COV-2) (SARS-COV-2) 00:00:00 [facility] lin[facility] vaccine, unspecified vaccine, unspecified COVID-19 COVID-19 2021-02-17 Completed [place] [facility] (SARS-COV-2) (SARS-COV-2) 00:00:00 [facility] vaccine, unspecified vaccine, unspecified COVID-19 COVID-19 2021-02-17 Completed [place] [facility] (SARS-COV-2) (SARS-COV-2) 00:00:00 [facility] vaccine, unspecified vaccine, unspecified COVID-19 COVID-19 2021-02-17 Completed [place] [facility] (SARS-COV-2) (SARS-COV-2) 00:00:00 [facility] vaccine, unspecified vaccine, unspecified COVID-19 COVID-19 2021-02-17 Completed [place] [facility] (SARS-COV-2) (SARS-COV-2) 00:00:00 [facility] vaccine, unspecified vaccine, unspecified SARS-COV-2 SARS-COV-2 2021-01-27 Completed [place] [facility] (COVID-19) vaccine, (COVID-19) vaccine, 00:00:00 Hospital Clinics UNSPECIFIED UNSPECIFIED SARS-COV-2 SARS-COV-2 2021-01-27 Completed [place] [facility] (COVID-19) vaccine, (COVID-19) vaccine, 00:00:00 Hospital Clinics UNSPECIFIED UNSPECIFIED SARS-COV-2 SARS-COV-2 2021-01-27 Completed [place] [facility] (COVID-19) vaccine, (COVID-19) vaccine, 00:00:00 Hospital Clinics UNSPECIFIED UNSPECIFIED SARS-COV-2 SARS-COV-2 2021-01-27 Completed [place] [facility] (COVID-19) vaccine, (COVID-19) vaccine, 00:00:00 Hospital Clinics UNSPECIFIED UNSPECIFIED SARS-COV-2 SARS-COV-2 2021-01-27 Completed [place] [facility] (COVID-19) vaccine, (COVID-19) vaccine, 00:00:00 Hospital Clinics UNSPECIFIED UNSPECIFIED SARS-COV-2 SARS-COV-2 2021-01-27 Completed [place] [facility] (COVID-19) vaccine, (COVID-19) vaccine, 00:00:00 Hospital Clinics UNSPECIFIED UNSPECIFIED SARS-COV-2 SARS-COV-2 2021-01-27 Completed [place] [facility] (COVID-19) vaccine, (COVID-19) vaccine, 00:00:00 Hospital Clinics UNSPECIFIED UNSPECIFIED SARS-COV-2 SARS-COV-2 2021-01-27 Completed [place] [facility] (COVID-19) vaccine, (COVID-19) vaccine, 00:00:00 Hospital Clinics UNSPECIFIED UNSPECIFIED SARS-COV-2 SARS-COV-2 2021-01-27 Completed [place] [facility] (COVID-19) vaccine, (COVID-19) vaccine, 00:00:00 Hospital Clinics UNSPECIFIED UNSPECIFIED SARS-COV-2 SARS-COV-2 2021-01-27 Completed [place] [facility] (COVID-19) vaccine, (COVID-19) vaccine, 00:00:00 Hospital Clinics UNSPECIFIED UNSPECIFIED SARS-COV-2 SARS-COV-2 2021-01-27 Completed [place] [facility] (COVID-19) vaccine, (COVID-19) vaccine, 00:00:00 [facility] UNSPECIFIED UNSPECIFIED COVID-19 COVID-19 2021-01-27 Completed [place] [facility] (SARS-COV-2) (SARS-COV-2) 00:00:00 [facility] vaccine, unspecified vaccine, unspecified COVID-19 COVID-19 2021-01-27 Completed [place] [facility] (SARS-COV-2) (SARS-COV-2) 00:00:00 [facility] vaccine, unspecified vaccine, unspecified COVID-19 COVID-19 2021-01-27 Completed [place] [facility] (SARS-COV-2) (SARS-COV-2) 00:00:00 [facility] vaccine, unspecified vaccine, unspecified COVID-19 COVID-19 2021-01-27 Completed [place] [facility] (SARS-COV-2) (SARS-COV-2) 00:00:00 [facility] vaccine, unspecified vaccine, unspecified COVID-19 COVID-19 2021-01-27 Completed [place] [facility] (SARS-COV-2) (SARS-COV-2) 00:00:00 [facility] vaccine, unspecified vaccine, unspecified pneumococcal pneumococcal 2020-05-16 Completed [place] [facility] munity conjugate PCV 13 conjugate PCV 13 00:00:00 [facility] pneumococcal pneumococcal 2020-05-16 Completed [place] Com munity conjugate PCV 13 conjugate PCV 13 00:00:00 [facility] pneumococcal pneumococcal 2020-05-16 Completed [place] [facility] conjugate PCV 13 conjugate PCV 13 00:00:00 [facility] pneumococcal pneumococcal 2020-05-16 Completed [place] [facility] conjugate PCV 13 conjugate PCV 13 00:00:00 [facility] pneumococcal pneumococcal 2020-05-16 Completed [place] [facility] conjugate PCV 13 conjugate PCV 13 00:00:00 [facility] pneumococcal pneumococcal 2020-05-16 Completed [place] [facility] conjugate PCV 13 conjugate PCV 13 00:00:00 [facility] pneumococcal pneumococcal 2020-05-16 Completed [place] [facility] conjugate PCV 13 conjugate PCV 13 00:00:00 [facility] pneumococcal pneumococcal 2020-05-16 Completed [place] [facility] conjugate PCV 13 conjugate PCV 13 00:00:00 [facility] pneumococcal pneumococcal 2020-05-16 Completed [place] [facility] conjugate PCV 13 conjugate PCV 13 00:00:00 [facility] pneumococcal pneumococcal 2020-05-16 Completed [place] [facility] conjugate PCV 13 conjugate PCV 13 00:00:00 [facility] pneumococcal pneumococcal 2020-05-16 Completed [place] [facility] conjugate PCV 13 conjugate PCV 13 00:00:00 [facility] pneumococcal pneumococcal 2020-05-16 Completed [place] [facility] conjugate PCV 13 conjugate PCV 13 00:00:00 [facility] pneumococcal pneumococcal 2020-05-16 Completed [place] [facility] conjugate PCV 13 conjugate PCV 13 00:00:00 [facility] pneumococcal pneumococcal 2020-05-16 Completed [place] [facility] conjugate PCV 13 conjugate PCV 13 00:00:00 [facility] pneumococcal pneumococcal 2020-05-16 Completed [place] [facility] conjugate PCV 13 conjugate PCV 13 00:00:00 [facility] pneumococcal pneumococcal 2020-05-16 Completed [place] [facility] conjugate PCV 13 conjugate PCV 13 00:00:00 [facility] pneumococcal pneumococcal 2020-05-16 Completed [place] [facility] conjugate PCV 13 conjugate PCV 13 00:00:00 [facility] zoster recombinant zoster recombinant 2019-10-11 Completed [place] [facility] zoster recombinant zoster recombinant 2019-10-11 Completed [facility] [facility] 10:24:35 [facility] zoster recombinant zoster recombinant 2019-10-11 Completed [facility] [facility] 10:24:35 [facility] zoster recombinant zoster recombinant 2019-10-11 Completed [facility] [facility] 10:24:35 [facility] zoster recombinant zoster recombinant 2019-10-11 Completed [facility] [facility] 10:24:35 [facility] zoster recombinant zoster recombinant 2019-10-11 Completed [facility] [facility] 10:24:35 [facility] zoster recombinant zoster recombinant 2019-10-11 Completed [facility] [facility] 10:24:35 [facility] zoster recombinant zoster recombinant 2019-10-11 Completed [facility] [facility] 10:24:35 [facility] zoster recombinant zoster recombinant 2019-10-11 Completed [facility] [facility] 10:24:35 [facility] zoster recombinant zoster recombinant 2019-10-11 Completed [facility] [facility] 10:24:35 [facility] zoster recombinant zoster recombinant 2019-10-11 Completed [facility] [facility] 10:24:35 [facility] zoster recombinant zoster recombinant 2019-10-11 Completed [facility] [facility] 10:24:35 [facility] zoster recombinant zoster recombinant 2019-10-11 Completed [facility] [facility] 10:24:35 [facility] zoster recombinant zoster recombinant 2019-10-11 Completed [facility] [facility] 10:24:35 [facility] zoster recombinant zoster recombinant 2019-10-11 Completed [facility] [facility] 10:24:35 [facility] zoster recombinant zoster recombinant 2019-10-11 Completed [facility] [facility] 10:24:35 [facility] zoster recombinant zoster recombinant 2019-10-11 Completed [facility] [facility] 10:24:35 [facility] Vital Signs Vital Name Observation Time Observation Value Comments Source BP Diastolic 2022-10-02 00:00:00 78 mm[Hg] [facility] Height 2022-10-02 00:00:00 69 [in_i] [facility] s BMI (Body Mass 2022-10-02 00:00:00 23.3 kg/m2 [facility] Index) [facility] BP Systolic 2022-10-02 00:00:00 128 mm[Hg] [facility] s Body Weight 2022-10-02 00:00:00 2528 [oz_av] [facility] height 2022-09-06 09:45:00 69 [in_i] [facility] weight 2022-09-06 09:45:00 157.2 [lb_av] [facility] temperature 2022-09-06 09:45:00 98.1 [degF] [facility] bmi 2022-09-06 09:45:00 23.21 kg/m2 [facility] oximetry 2022-09-06 09:45:00 95 % [facility] respiratory rate 2022-09-06 09:45:00 16 /min Comm on [facility] - [facility] blood pressure 2022-09-06 09:45:00 133 mm[Hg] [facility] - systolic [facility] blood pressure 2022-09-06 09:45:00 82 mm[Hg] [facility] - diastolic [facility] BP Diastolic 2022-02-04 00:00:00 90 mm[Hg] [facility] Height 2022-02-04 00:00:00 69 [in_i] [facility] s BMI (Body Mass 2022-02-04 00:00:00 24.6 kg/m2 [facility]) [facility] BP Systolic 2022-02-04 00:00:00 140 mm[Hg] [facility] s Body Weight 2022-02-04 00:00:00 2662.4 [oz_av] [facility] s BP Diastolic 2022-01-07 00:00:00 100 mm[Hg] [facility] s Height 2022-01-07 00:00:00 69 [in_i] [facility] s BMI (Body Mass 2022-01-07 00:00:00 25.6 kg/m2 [facility] Clinic s BP Systolic 2022-01-07 00:00:00 170 mm[Hg] [facility] Body Weight 2022-01-07 00:00:00 2777.6 [oz_av] [facility] s BP Diastolic 2021-12-04 00:00:00 90 mm[Hg] [facility] Height 2021-12-04 00:00:00 69 [in_i] [facility] s BMI (Body Mass 2021-12-04 00:00:00 24.5 kg/m2 [facility]) [facility] BP Systolic 2021-12-04 00:00:00 140 mm[Hg] [facility] Body Weight 2021-12-04 00:00:00 2652.8 [oz_av] [facility] BP Diastolic 2021-08-23 00:00:00 100 mm[Hg] [facility] Height 2021-08-23 00:00:00 69 [in_i] [facility] BMI (Body Mass 2021-08-23 00:00:00 25.1 kg/m2 [facility]) [facility] BP Systolic 2021-08-23 00:00:00 150 mm[Hg] [facility] Body Weight 2021-08-23 00:00:00 2716.8 [oz_av] [facility] s BP Diastolic 2021-07-11 00:00:00 80 mm[Hg] [facility] Height 2021-07-11 00:00:00 69 [in_i] [facility] BMI (Body Mass 2021-07-11 00:00:00 24.8 kg/m2 [facility]) [facility] BP Systolic 2021-07-11 00:00:00 138 mm[Hg] [facility] Body Weight 2021-07-11 00:00:00 2691.2 [oz_av] [facility] BP Diastolic 2021-07-02 00:00:00 88 mm[Hg] [facility] Height 2021-07-02 00:00:00 69 [in_i] [facility] BMI (Body Mass 2021-07-02 00:00:00 25.3 kg/m2 [facility] s BP Systolic 2021-07-02 00:00:00 146 mm[Hg] [facility] Body Weight 2021-07-02 00:00:00 2736 [oz_av] [facility] BP Diastolic 2021-06-26 00:00:00 100 mm[Hg] [facility] Height 2021-06-26 00:00:00 69 [in_i] [facility] BMI (Body Mass 2021-06-26 00:00:00 25.1 kg/m2 [facility]) [facility] BP Systolic 2021-06-26 00:00:00 140 mm[Hg] [facility] Body Weight 2021-06-26 00:00:00 2716.8 [oz_av] [facility] Height 2021-06-18 00:00:00 69 [in_i] [facility] s BMI (Body Mass 2021-06-18 00:00:00 26.2 kg/m2 [facility]) [facility] Body Weight 2021-06-18 00:00:00 2841.6 [oz_av] [facility] Height 2021-06-11 00:00:00 69 [in_i] [facility] BMI (Body Mass 2021-06-11 00:00:00 25.1 kg/m2 [facility]) [facility] Body Weight 2021-06-11 00:00:00 2720 [oz_av] [facility] s BP Diastolic 2021-05-23 00:00:00 80 mm[Hg] [facility] Height 2021-05-23 00:00:00 69 [in_i] [facility] BMI (Body Mass 2021-05-23 00:00:00 24.9 kg/m2 [facility]) [facility] BP Systolic 2021-05-23 00:00:00 125 mm[Hg] [facility] Body Weight 2021-05-23 00:00:00 2697.6 [oz_av] [facility] s BP Diastolic 2021-05-16 00:00:00 80 mm[Hg] [facility] Height 2021-05-16 00:00:00 69 [in_i] [facility] BP Systolic 2021-05-16 00:00:00 122 mm[Hg] [facility] BP Diastolic 2021-04-12 00:00:00 90 mm[Hg] [facility] Height 2021-04-12 00:00:00 69 [in_i] [facility] BMI (Body Mass 2021-04-12 00:00:00 25.3 kg/m2 [facility]) [facility] BP Systolic 2021-04-12 00:00:00 118 mm[Hg] [facility] Body Weight 2021-04-12 00:00:00 2745.6 [oz_av] [facility] BP Diastolic 2021-04-02 00:00:00 80 mm[Hg] [facility] Height 2021-04-02 00:00:00 69 [in_i] [facility] BMI (Body Mass 2021-04-02 00:00:00 25.1 kg/m2 [facility]) [facility] BP Systolic 2021-04-02 00:00:00 132 mm[Hg] [facility] Body Weight 2021-04-02 00:00:00 2720 [oz_av] [facility] BP Diastolic 2021-03-28 00:00:00 90 mm[Hg] [facility] Height 2021-03-28 00:00:00 69 [in_i] [facility] BMI (Body Mass 2021-03-28 00:00:00 25 kg/m2 [facility]) [facility] BP Systolic 2021-03-28 00:00:00 140 mm[Hg] [facility] Body Weight 2021-03-28 00:00:00 2713.6 [oz_av] [facility] s BP Diastolic 2020-12-27 00:00:00 90 mm[Hg] [facility] Height 2020-12-27 00:00:00 69 [in_i] [facility] s BMI (Body Mass 2020-12-27 00:00:00 24.5 kg/m2 [facility] s BP Systolic 2020-12-27 00:00:00 140 mm[Hg] [facility] s Body Weight 2020-12-27 00:00:00 2659.2 [oz_av] [facility] s Procedures Procedure Date / Time Performed Performing Clinician Sourc e XR, ribs, unilateral, 2022-10-02 00:00:00 [facility] [address] [facility] XR, chest, 2 view 2022-10-02 00:00:00 [facility] XR, lumbar spine, 2 2022-10-02 00:00:00 [facility] XR, chest, 2 view 2022-02-04 00:00:00 [facility] MRI, cervical spine, 2021-07-02 00:00:00 [facility] w/o contrast [facility] XR, shoulder, 2 or 2021-04-02 00:00:00 [facility] Shoulder Joint Surgery [facility] Knee Surgery [facility] Back Surgery [facility] Plan of Care Planned Activity Planned Date Details Comments Source Future Scheduled Test 2022-11-13 Hepatitis C screening [facility] 02:31:03 (procedure) [code = [id number]] Future Scheduled Test 2022-11-13 COLONOSCOPY SCREENING [facility] 02:31:03 [code = COLONOSCOPY SCREENING] Future Scheduled Test 2022-11-13 SHINGLES VACCINES (1 [facility] 02:31:03 of 2) [code = SHINGLES VACCINES (1 of 2)] Future Scheduled Test 2022-11-13 65+ PNEUMOCOCCAL [facility] 02:31:03 VACCINE (1 - PCV) [code = 65+ PNEUMOCOCCAL VACCINE (1 - PCV)] Future Scheduled Test 2022-11-13 COVID-19 VACCINE (3 - [facility] 02:31:03 Booster for Pfizer series) [code = COVID-19 VACCINE (3 - Booster for Pfizer series)] Future Scheduled Test 2022-11-13 INFLUENZA VACCINE [facility] 02:31:03 [code = INFLUENZA VACCINE] Diagnostic Test 2022-10-02 HbA1c (hemoglobin [facility] Pending 00:00:00 A1c), blood [code = [facility] HbA1c (hemoglobin A1c), blood] Diagnostic Test 2022-10-02 lipid panel, serum [facility] Pending 00:00:00 [code = lipid panel, [facility]ospita l [facility] serum] Diagnostic Test 2022-10-02 CMP, serum or plasma [facility] Pending 00:00:00 [code = CMP, serum or Hospit al [facility] plasma] Diagnostic Test 2022-10-02 [facility] Pending 00:00:00 25-hydroxy, total, [facility] serum [code = vitamin D, 25-hydroxy, total, serum] Diagnostic Test 2022-10-02 uric acid, serum or [facility] Pending 00:00:00 plasma [code = uric [facility] acid, serum or plasma] Future Appointment 2023-01-02 Eileen Saenz, Vimal Spencer [facility] 00:00:00 Ashu Munguia; [place] [address] Encounters Start End Encounter Admission Attending Care Care Encounter Source Date/Time Date/Time Type Type Clinicians Facility Department ID 2022-09-[address] [facility] [id number] Common 09:01:01 [facility] 2022-04-[address] [facility] [id number] Common 10:58:02 [facility] 2022-03-[address] [facility] [id number] Common 08:25:05 [facility] 2022-10-03 2022-10-03 Outpatient [facility]_Ana [facility] [id number] [place] 00:00:00 00:00:00 103 Commun i ty [facility] 2022-10-03 2022-10-03 Eileen Singh [facility] [place] - [place] 103 [place] 00:00:00 00:00:00 Jatin Saenz MD: [address] [facility], [place] [address], HOSPITAL [place], [place] CLINIC, [address] [place] , Ph. 2022-10-02 2022-10-02 Outpatient [facility]_Ana [facility] [id number] [place] 00:00:00 00:00:00 102 [facility] i ty [facility] Clinics 2022-10-02 2022-10-02 Eileen Singh [facility] [place] - [place] 102 [place] 00:00:00 00:00:00 Jatin Saenz MD: [address] [facility] a [address], [address], HOSP[facility], [address] [place] , Ph. 2022-10-02 2022-10-02 (PROC) STLMLC STLMLC [id number] Co m[facility] 00:00:00 00:00:00 Procedure Spir it - [facility] 2022-09-06 2022-09-06 OFFICE STLMLC STLMLC [id number] Co mmon 00:00:00 00:00:00 VISIT Spirit ESTAB PT - [facility] LEVEL 2 [facility] 2022-02-26 2022-02-26 Outpatient [facility]_Ana [facility] [id number] [place] 00:00:00 00:00:00 329 [facility] i ty [facility] Clinics 2022-02-04 2022-02-04 Outpatient [facility]Ana [facility] [id number] [place] 10:51:00 10:51:00 307 Commun i ty [facility] Clinics 2022-02-04 2022-02-04 Eileen Singh [facility] [place] [id number] 307 [place] 00:00:00 00:00:00 Jatin Saenz MD: [address] [facility] ANG[facility]LICA [facility] a [address], [address], [place], [place] CLINIC, [address] [place] , Ph. 2022-02-04 2022-02-04 Outpatient Eileen Saenz [facility] [id number] 00:00:00 00:00:00 Samantha [id number] 2022-01-09 2022-01-09 Outpatient [facility]_A [facility] [id number] [place] 11:34:00 11:34:00 209 Commun i ty Hosp[facility] Clinics 2022-01-07 2022-01-07 Outpatient [facility]_A [facility] [id number] [place] 11:59:00 11:59:00 207 Commun i ty Hospita l Clinics 2022-01-07 2022-01-07 Eileen Samantha [facility] [place] - [place] 207 [place] 00:00:00 00:00:00 Jatin Saenz MD: [address] [facility] Hospit a [address], COMM[address], HOSPITAL [place], [place] CLINIC, [address] [place] , Ph. 2022-01-07 2022-01-07 Outpatient Eileen Saenz [facility] [id number] 00:00:00 00:00:00 Samantha [id number] 2021-12-04 2021-12-04 Outpatient [facility]_Ana [facility] [id number] [place] 12:04:00 12:04:00 104 Commun i ty Hospita l Clinics 2021-12-04 2021-12-04 Eileen Singh [facility] [place] - [place] 104 [place] 00:00:00 00:00:00 Jatin Saenz MD: [address] [facility] Hospit [address], [facility] [address], [place], [place], [address] [place] , Ph. 2021-12-04 2021-12-04 Outpatient Eileen Saenz [facility] [id number] 00:00:00 00:00:00 Samantha [id number] 2021-11-292021-11-29 Office Arias, 1.2.840.1 [id number] Methodi 09:30:00 10:44:10 Visit Vincvicki [id number] 201 [facility] 3.430.2.7 Hospit a .[id number] l .8 2021-11-29 2021-11-29 Outpatient ARIAS, [facility] [id number] [place] 00:00:00 00:00:00 VINCENT 201 Method i 2021-11-28 2021-11-28 Travel 1.2.840.1 [id number] Methodi 00:00:00 00:00:00 [id number] [id number] 3.430.2.7 0.2.7.3.698 Ho spita .3.278126 084.8 l .8 2021-10-04 2021-10-04 Outpatient ARIAS, [facility] [id number] [place] 00:00:00 00:00:00 VINCENT 909 Method i 2021-09-06 2021-09-06 Outpatient ARIAS, [facility] [id number] [place] 00:00:00 00:00:00 VINCENT 345 Method i 2021-08-27 2021-08-27 Outpatient ARIAS, [facility] [id number] 103 [place] 00:00:00 00:00:00 VINCVICKI 617 Method i 2021-08-24 2021-08-24 Outpatient ARIAS, [facility] [id number] 142 [place] 00:00:00 00:00:00 VINCENT 208 Method i 2021-08-23 2021-08-23 Outpatient KESOPHIE [facility] [id number] [place] 12:58:00 12:58:00 923 [facility] i [facility] 2021-08-23 2021-08-23 Outpatient Eileen Saenz [facility] [id number] 00:00:00 00:00:00 Samantha [id number] 2021-08-23 2021-08-23 Eileen Singh [facility] [place] [id number] 923 [place] 00:00:00 00:00:00 Jatin [facility]enz [facility] [address] [facility] [address] [address], H[facility], [place] CLINIC, [address] [place] , Ph. 2021-08-22 2021-08-22 Outpatient ARIAS, [facility] [id number] [place] 00:00:00 00:00:00 VINCENT [address] 2021-08-21 2021-08-21 Outpatient ARIAS, [facility] [id number] 723 [place] 00:00:00 00:00:00 VINCENT [address] 2021-08-16 2021-08-16 Outpatient MAFFET, [facility] [id number] [place] 00:00:00 00:00:00 JOVAN [address] 2021-08-16 2021-08-16 Outpatient ARIAS, [facility] [id number] [place] 00:00:00 00:00:00 VINCENT [address] 2021-07-23 2021-07-23 Outpatient MAFFET, [facility] [id number] [place] 00:00:00 00:00:00 JOVAN [address] 2021-07-19 2021-07-19 Outpatient KEFFER_A [facility] [id number] [place] 03:55:00 03:55:00 819 [facility] 2021-07-11 2021-07-11 Outpatient [place]_A [facility] [id number] [place] 09:45:00 09:45:00 811 [facility] 2021-07-11 2021-07-11 Outpatient Eileen Saenz [facility] [id number] 00:00:00 00:00:00 Samantha [id number] 2021-07-11 2021-07-11 Eileen Singh [facility] [place] 811 [place] 00:00:00 00:00:00 Jatin Saenz MD: [address] [facility] [address], [facility] [address], HOSP[facility], [address] [place] , Ph. 2021-07-05 2021-07-05 Outpatient PELUSE, [facility] [id number] [place] 00:00:00 00:00:00 MU-ISM [address] 2021-07-05 2021-07-05 Outpatient PELUSE, [facility] [id number] [place] 00:00:00 00:00:00 MU-ISM [address] 2021-07-05 2021-07-05 Outpatient MAFFET, [facility] [id number] [place] 00:00:00 00:00:00 JOVAN [address] 2021-07-02 2021-07-02 Outpatient [place]_Ana [facility] [id number] [place] 09:31:00 09:31:00 802 [facility] Clin[facility] 2021-07-02 2021-07-02 Outpatient Eileen Saenz [facility] [id number] 00:00:00 00:00:00 Samantha [id number] 2021-07-02 2021-07-02 Eileen Singh [facility] [place] [id number] 802 [place] 00:00:00 00:00:00 Jatin Saenz MD: [address] [facility] a [address], [facility] [place], [place] CL[place]IC, [address] [place] , Ph. 2021-06-26 2021-06-26 Outpatient EVELIO [facility] [id number] [place] 10:24:00 10:24:00 727 [facility] Clinics 2021-06-26 2021-06-26 Outpatient Eileen Saenz [facility] [id number] 00:00:00 00:00:00 Samantha [id number] 2021-06-26 2021-06-26 Eileen Singh [facility] [place] [id number] 727 [place] 00:00:00 00:00:00 Jatin Saenz MD: [address] [facility] Hospit a [address], COMM[facility] [address], HOSPITAL [facility], [address] [place] , Ph. 2021-06-18 2021-06-18 Outpatient [place]_A [facility] [id number] [place] 10:41:00 10:41:00 719 Commun i ty [facility]osp[facility] Clinics 2021-06-18 2021-06-18 Outpatient Eileen Saenz [facility] [id number] 00:00:00 00:00:00 Samantha [id number] 2021-06-18 2021-06-18 Eileen Singh [facility] [place] 719 [place] 00:00:00 00:00:00 Jatin Saenz MD: [address] [facility] Hospit [facility] [address], COMM[facility]ITY [facility] [address], HOSPITAL [facility], [address] [place] , Ph. 2021-06-11 2021-06-11 Outpatient [place]_Ana [facility] [id number] [place] 12:09:00 12:09:00 712 Commun i ty Hospita l [facility] 2021-06-11 2021-06-11 Outpatient Eileen Saenz [facility] [id number] 00:00:00 00:00:00 Samantha [id number] 2021-06-11 2021-06-11 Eileen Singh [facility] [place] [id number] 712 [place] 00:00:00 00:00:00 Jatin Saenz MD: [address] [facility] Hospit a [address], COMM[facility]ITY [address], [place], [place], [address] [place] , Ph. 2021-05-23 2021-05-23 Outpatient KEFFER_Ana [facility] [id number] [place] 09:50:00 09:50:00 623 Commun i ty Hospita [facility] Clinics 2021-05-23 2021-05-23 Eileen Singh [facility] [place] [id number] 623 [place] 00:00:00 00:00:00 Jatin Saenz MD: [address] [facility] OLAYINKA [facility] a [address], COMM[facility] [address], HOSPITAL [facility], [address] [place] , Ph. 2021-05-23 2021-05-23 Outpatient Eileen Saenz [facility] [id number] 00:00:00 00:00:00 Samantha [id number] 2021-05-16 2021-05-16 Outpatient [place]_Ana [facility] [id number] [place] 09:39:00 09:39:00 616 Commun i ty Hospita l [facility] 2021-05-16 2021-05-16 Eileen Singh [facility] [place] [id number] 616 [place] 00:00:00 00:00:00 Jatin Saenz MD: [address] [facility] OLAYINKA [facility] Hospit a [address], [facility] l [address], [place], [place] CLINIC, [address] [place] , Ph. 2021-05-16 2021-05-16 Outpatient Eileen Saenz [facility] [id number] 00:00:00 00:00:00 Samantha [id number] 2021-04-12 2021-04-12 Outpatient [place]_A [facility] [id number] [place] 09:37:00 09:37:00 513 Commun i ty [facility] Clinics 2021-04-12 2021-04-12 Eileen Singh [facility] [place] [id number] 513 [place] 00:00:00 00:00:00 Jatin Saenz MD: [address] [facility] Hospit a [address], COMMUNITY l [address], HOSPITAL [place], [place] CLINIC, [address] [place] , Ph. 2021-04-12 2021-04-12 Outpatient Eileen Saenz [facility] [id number] 00:00:00 00:00:00 Samantha [id number] 2021-04-02 2021-04-02 Outpatient KEFFER_A [facility] [id number] [place] 12:00:00 12:00:00 503 Commun i ty [facility]ospita [facility] Clinics 2021-04-02 2021-04-02 Eileen Singh [facility] 503 [place] 00:00:00 00:00:00 Jatin Saenz MD: [address] [facility] Hospit a [address], COMMUNITY l [address], HOSPITAL [place], [place] CLINIC, [address] [place] , Ph. 2021-04-02 2021-04-02 Outpatient Eileen Saenz [facility] [id number] 00:00:00 00:00:00 Samantha [id number] 2021-03-28 2021-03-28 Outpatient KEFFER_A [facility] [id number] [place] 10:13:00 10:13:00 428 Commun i [facility] Clinics 2021-03-28 2021-03-28 Outpatient Eileen Saenz [facility] [id number] 00:00:00 00:00:00 Samantha [id number] 2021-03-28 2021-03-28 Eileen Singh [facility] [place] [facility] 428 [place] 00:00:00 00:00:00 Jatin Saenz MD: [address] [facility] Hospit a [address], COMMUNITY l [address], HOSPITAL [place], [place] CLINIC, [address] [place] , Ph. 2021-02-19 2021-02-19 Outpatient [place]_Ana [facility] [id number] [place] 12:29:00 12:29:00 427 Commun i ty [facility]ospita [facility] Clinics 2021-01-21 2021-01-21 Outpatient [place]_Ana [facility] [id number] [place] 01:01:00 01:01:00 221 Commun i ty Hospita [facility] Clinics 2020-12-27 2020-12-27 Outpatient KEFFER_Ana [facility] [id number] [place] 11:54:00 11:54:00 127 Commun i ty Hospita [facility] Clinics 2020-12-27 2020-12-27 Outpatient Eileen Saenz [facility] [id number] 00:00:00 00:00:00 Samantha [id number] 2020-12-27 2020-12-27 Eileen Singh [facility] [place] 127 [place] 00:00:00 00:00:00 Jatin Saenz MD: [address] [facility] ty [facility] a [address], [facility] l [address], HOSPITAL [facility], [place] [address] [place] [address] [place] , Ph. Results Test Description Test Time Test Comments Results Result Comments Source SARS-CoV-2 (COVID-19) RNA [Presence] in Respiratory sp ecimen by 2021-08-24 21:59:59 MAN with probe detection Test Item Value Reference Range Interpretation Comme nts SARS-CoV-2 (COVID-19) RNA [Presence] in Respiratory Not detected No t-Detected specimen by MAN with probe detection (test code = 73192-9) Whether patient is employed in a healthcare setting (test code = 75881-1) Whether the patient has symptoms related to condition of interest (test code = 16810-0) Patient was hospitalized because of this condition (test code = 49907-4) Whether the patient was admitted to intensive care unit (ICU) for condition of interest (test code = 13316-2) Whether patient resides in a congregate care setting (test code = 99478-3) [facility] (COVID-19) RNA [Presence] in Respiratory specimen by MAN with probe [id number] 21:58:32 Test Item Value Reference Range Interpretation Comments SARS-CoV-2 (COVID-19) RNA Not detected Not-Detected [Presence] in Respiratory specimen by MAN with probe detection (test code = 97849-5) Whether patient is employed in a healthcare setting (test code = 78421-9) Whether the patient has symptoms related to condition of interest (test code = 15574-6) Patient was hospitalized because of this condition (test code = 97082-2) Whether the patient was admitted to intensive care unit (ICU) for condition of interest (test code = 96066-5) Whether patient resides in a congregate care setting (test code = 14522-2) [facility]Hemoglobin.total in Blood 2021-03-29 00:00:00 Test Item Value Reference Range Interpretation Comments Hemoglobin A1c/Hemoglobin.total in 6.0 % 4.8-5.6 H Blood (test code = 4548-4) Glucose mean value [Mass/volume] in 126 mg/dL Blood Estimated from glycated hemoglobin (test code = 65366-9) [facility] 2021-03-29 00:00:00 Test Item Value Reference Range Interpretation Comments Hemoglobin A1c/Hemoglobin.total in 6.0 % 4.8-5.6 H Blood (test code = 4548-4) Glucose mean value [Mass/volume] in 126 mg/dL Blood Estimated from glycated hemoglobin (test code = 90552-7) [facility]
--- NOTE | 2022-11-25 20:15 | RAD REPORT ---
EXAM DESCRIPTION: RAD - Chest Single View - 11/25/2022 7:33 pm CLINICAL HISTORY: COUGH COMPARISON: Chest Pa And Lat (2 Views) dated 06/20/2022; Chest Pa And Lat (2 Views) dated 09/19/2017 FINDINGS: Lines: None. Lungs: No evidence of edema or pneumonia. Low lung volumes. Pleural: No significant pleural effusions or pneumothorax. Cardiac: The heart size is within normal limits. Mediastinum: Within normal limits. Bones: No acute fractures. Other: None IMPRESSION: No acute cardiopulmonary disease. Low lung volumes.
[2022-11-25 20:16] LABS: Absolute Lymphocytes (CBC) 0.7 K/uL (0.7-4.9); Hematocrit 34.2 % (39.6-49.0); Lymphocytes % 8.5 % (15.3-44.8); MCV 107.2 fL (80-100); MPV 8.1 fL (7.6-11.3); RBC Red Blood Cell Count 3.19 M/uL (4.33-5.43)
[2022-11-25 20:39] LABS: Albumin 4.1 g/dL (3.4-5.0); Bilirubin Direct 0.2 mg/dL (0-0.2); Bilirubin Total 0.5 mg/dL (0.2-1.0); Magnesium 1.9 mg/dL (1.6-2.4); Potassium 4.6 mmol/L (3.5-5.1); Protein, Total 8.4 g/dL (6.4-8.2); Troponin High Sensitivity 24.4 pg/mL (<58.9)
[2022-11-25 20:40] LABS: Urine Blood 2+ (Negative); Urine Glucose Negative (Negative); Urine Protein 3+ (Negative); Urine pH 5.5 (5.0-7.0)
[2022-11-25] MEDS ORDERED: NA CHLORIDE 0.9% 500 ML ONE (20:51)
[2022-11-25 20:55] LABS: SARS-COV-2 RT PCR NEGATIVE (NEGATIVE)
[2022-11-25 20:55] LABS: Urine Bacteria <20 /HPF (<20); Urine Mucus Slight /HPF (None Seen); Urine RBC <5 /HPF (None Seen)
--- NOTE | 2022-11-25 21:43 | RAD REPORT ---
EXAM DESCRIPTION: CT - Head C Spine Cap Wo Con - 11/25/2022 9:13 pm CLINICAL HISTORY: Trauma, head and neck injury. Chest, abdomen and pelvis pain. syncope COMPARISON: Chest Pa And Lat (2 Views) dated 09/19/2017 TECHNIQUE: CT head without contrast. CT cervical spine without contrast with coronal and sagittal reformatted images. CT chest, abdomen and pelvis with coronal and sagittal reformatted images of the spine. All CT scans are performed using dose optimization technique as appropriate and may include automated exposure control or mA/KV adjustment according to patient size. FINDINGS: CT HEAD WITHOUT CONTRAST: No intracranial hemorrhage, hydrocephalus or extra-axial fluid collection. No acute large vascular te rritory infarct. Prominence of the extra-axial spaces may be secondary to subdural hygromas. Cerebral atrophy. The paranasal sinuses and mastoids are clear. The calvarium is intact. CT CERVICAL SPINE WITHOUT CONTRAST: No fracture or subluxation. Multilevel cervical spondylosis with varying degrees of neural foraminal narrowing . This is advanced at C4-5, C5-6, and C6-7. Moderate to severe central spinal stenosis is a lso noted these levels. The prevertebral soft tissues are normal in thickness. CT CHEST, ABDOMEN, PELVIS: Thorax: Chest Wall: No abnormal mass Lungs: No acute abnormality. Pleura: No effusions or pneumothorax. Emilee/Mediastinum: No lymphadenopathy. Aorta/Pulmonary Arteries: Ectasia of the ascending thoracic aorta. Heart: Normal size. Multi-vessel coronary artery disease. Abdomen/Pelvis: Liver: No acute abnormality or suspicious lesions. Biliary: No biliary ductal dilatation. Stomach: No significant focal abnormality. Duodenum: No significant focal abnormality. Pancreas: No significant abnormality. Spleen: No significant abnormality. Adrenal: No suspicious lesions. Kidney/ureter: No hydronephrosis. No renal calculi. Limited by motion. Probable right upper pole aj l cyst. Retroperitoneum: No retroperitoneal adenopathy. Vascular: No aneurysm. Atherosclerosis Bowel: Diverticulosis. No evidence of acute diverticulitis.. Peritoneum: No ascites or free air. Bladder: Grossly unremarkable. Reproductive: No adnexal masses. Bones: Moderate left acetabular degenerative changes. Status post L3-L5 fusion. Subacute left ninth r ib fracture. Age indeterminate left tenth rib fracture. Other: n/a IMPRESSION: 1. No acute intracranial abnormality. 2. No evidence of acute fracture or traumatic malalignment of the cervical spine. 3. No definite acute findings within the chest, abdomen, or pelvis.
--- NOTE | 2022-11-25 22:19 | EDPHYS ---
Physician Documentation [facility] Name: Enrique Obrien Age: 67 yrs Sex: Male : 1955 Arrival Date: 11/25/2022 Time: 18:46 Bed 3 Private MD: CHRISTIN Physician Monroe Dow HPI: 11/25 18:55 This 67 yrs old Black Male presents to ER via EMS with complaints of Syncope. cp 18:55 The patient has experienced syncope, lost consciousness. Onset: The symptoms/episode cp began/occurred just prior to arrival. Duration: This was a single episode, that lasted an unknown period of time. Context: occurred at home, Just prior to the episode the patient experienced weakness of legs. 18:55 Associated injury: Abdomen: pain. Associated signs and symptoms: Pertinent positives: cp combativeness, Pertinent negatives: chest pain, headache, numbness. Current symptoms: decreased level of consciousness, is arousable but tired. EMS responded to patient after being called to his home after patient was found unresponsive by die caster. Upon arrival EMS reports patient became combative and so 2 mg Versed was given. Patient reports he became weak in his legs and fell to ground. Historical: - Allergies: 18:51 No Known Allergies; bp - Home Meds: 11/26 01:58 carvedilol 25 mg oral tab 1 tab 2 times per day [Active]; tamsulosin 0.4 mg oral cap 1 pf1 cap once daily [Active]; tadalafil 20 mg oral tab 1 tab once daily [Active]; gabapentin 300 mg oral cap 1 cap 3 times per day [Active]; losartan 100 mg oral tab 1 tab once daily [Active]; Januvia 100 mg oral tab 1 tab once daily [Active]; solifenacin 10 mg oral tab 1 tab once daily [Active]; metformin 1,000 mg Oral tab 1 tab 2 times per day [Active]; - PMHx: 11/25 18:51 Diabetes mellitus; Hypertensive disorder; bp 11/26 01:58 erectile dysfunction; pf1 - Immunization history:: Adult Immunizations up to date. - Social history:: Smoking status: unknown. ROS: 11/25 19:00 Constitutional: Negative for body aches, chills, fever, poor PO intake. cp 19:00 Cardiovascular: Negative for chest pain, edema, palpitations. cp 19:00 Eyes: Negative for injury, pain, redness, and discharge. cp 19:00 ENT: Negative for drainage from ear(s), ear pain, sore throat, difficulty swallowing, difficulty handling secretions. 19:00 Respiratory: Negative for cough, shortness of breath, wheezing. 19:00 Abdomen/GI: Positive for abdominal pain, Negative for vomiting, diarrhea, constipation. 19:00 MS/extremity: Negative for decreased range of motion, deformity. 19:00 Neuro: Positive for syncope, weakness, Negative for altered mental status, headache. 19:00 All other systems are negative. Exam: 19:05 Constitutional: The patient appears in no acute distress, alert, awake, cp non-diaphoretic, non-toxic, well developed, well nourished. 19:05 Head/Face: Normocephalic, atraumatic. cp 19:05 Eyes: Periorbital structures: appear normal, Pupils: equal, round, and reactive to light and accomodation, Extraocular movements: intact throughout, Conjunctiva: normal, no exudate, no injection, Sclera: no appreciated abnormality, Lids and lashes: appear normal, bilaterally. 19:05 ENT: External ear(s): are unremarkable, Ear canal(s): are normal, clear, TM's: dullness, bilaterally, Nose: is normal, Mouth: Lips: moist, Oral mucosa: moist, Posterior pharynx: Airway: no evidence of obstruction, patent, swelling, is not appreciated, erythema, is not appreciated, exudate, is not appreciated. 19:05 Neck: C-spine: C-collar placed in ED, vertebral tenderness, that is mild, appreciated at C6 and C7. 19:05 Chest/axilla: Inspection: normal, Palpation: is normal, no crepitus, no tenderness. 19:05 Cardiovascular: Rate: tachycardic, Rhythm: regular, Edema: is not appreciated, JVD: is not appreciated. 19:05 Respiratory: the patient does not display signs of respiratory distress, Respirations: normal, no use of accessory muscles, no retractions, labored breathing, is not present, Breath sounds: are clear throughout, no decreased breath sounds, no stridor, no wheezing. 19:05 Abdomen/GI: Inspection: abdomen appears normal, Bowel sounds: active, all quadrants, Palpation: soft, in all quadrants, mild abdominal tenderness, in the anterior aspect of left lateral abdomen and posterior aspect of left lateral abdomen, rebound tenderness, is not appreciated, involuntary guarding, is not appreciated. 19:05 Back: vertebral tenderness, is not appreciated. 19:05 Musculoskeletal/extremity: Exam is negative for decreased range of motion, deformity, injury. 19:05 Neuro: Orientation: to person, place, situation, Mentation: able to follow commands, slow to respond, Cerebellar function: Romberg testing is negative, Motor: moves all fours, general weakness with no focal deficits, Sensation: no obvious gross deficits. 19:35 ECG was reviewed by the Attending Physician. cp Vital Signs: 18:49 BP 114 / 70; Pulse 140; Resp 20; Temp 98; Pulse Ox 98% ; bp 20:10 BP 187 / 95; Pulse 93; Resp 25; Temp 98.7; Pulse Ox 94% on R/A; Pain 8/10; pf1 20:45 BP 177 / 108; Pulse 79; Resp 26; Pulse Ox 97% on R/A; pf1 22:00 BP 173 / 91; Pulse 79; Resp 26; Pulse Ox 98% on R/A; pf1 22:45 BP 165 / 96; Pulse 81; Resp 24; Temp 98.3; Pulse Ox 96% on R/A; pf1 23:45 BP 169 / 94; Pulse 79; Resp 26; Pulse Ox 96% on R/A; Pain 0/10; pf1 11/26 00:22 BP 169 / 102; Pulse 89; Resp 24; Pulse Ox 97% on R/A; Pain 0/10; pf1 01:30 BP 160 / 96; Pulse 81; Resp 24; Temp 98.2(O); Pulse Ox 98% on R/A; Pain 5/10; pf1 02:00 BP 157 / 96; Pulse 80; Resp 26; Temp 98.3; Pulse Ox 97% on R/A; Pain 4/10; pf1 MDM: 11/25 18:46 Patient medically screened. cp 19:00 Differential Diagnosis: cardiac arrhythmia, cerebrovascular accident, drug effect, GI cp bleed, seizure, transient ischemic attack, vasovagal episode. 22:00 Data reviewed: vital signs, nurses notes, lab test result(s), EKG, radiologic studies, cp CT scan, plain films. 22:00 Test interpretation: by ED physician or midlevel provider: ECG, plain radiologic cp studies. 22:15 Counseling: I had a detailed discussion with the patient and/or guardian regarding: the cp historical points, exam findings, and any diagnostic results supporting the discharge/admit diagnosis, lab results, radiology results, the need to transfer to another facility, due to request by administration. Response to treatment: the patient's symptoms have markedly improved after treatment, and as a result, I will discharge patient. 11/25 18:48 Order name: Basic Metabolic Panel; Complete Time: 20:41 [facility] 11/25 20:41 Interpretation: Normal except: GLUC 155; BUN 44; CRE 2.51; GFR 27. 11/25 18:48 Order name: CBC with Diff; Complete Time: 20:41 [facility] 11/25 20:42 Interpretation: Normal except: RBC 3.19; HGB 11.6; HCT 34.2; MCV 107.2; MCH 36.5; TATY% cp 78.2; LYM% 8.5. 11/25 18:48 Order name: LFT's; Complete Time: 20:41 [facility] 11/25 20:42 Interpretation: Normal except: AST 49; TP 8.4; GLOB 4.3; A/G 1.0. 11/25 18:48 Order name: Magnesium; Complete Time: 20:41 [facility] 11/25 18:48 Order name: NT PRO-BNP; Complete Time: 20:41 [facility] 11/25 18:48 Order name: PT-INR; Complete Time: 20:41 [facility] 11/25 18:48 Order name: Troponin HS; Complete Time: 20:41 [facility] 11/25 18:48 Order name: XRAY Chest (1 view); Complete Time: 20:41 [facility] 11/25 18:56 Order name: Urine Microscopic Only; Complete Time: 21:36 11/25 21:36 Interpretation: Reviewed. 11/25 18:56 Order name: Lactate w/ 2H reflex if indic.; Complete Time: 20:41 11/25 18:56 Order name: Blood Culture Adult (2) 11/25 18:56 Order name: COVID-19/FLU A+B; Complete Time: 21:36 11/25 21:37 Interpretation: Reviewed. 11/25 20:40 Order name: Urine Dipstick-Ancillary; Complete Time: 20:41 [facility] 11/25 18:48 Order name: EKG; Complete Time: 18:49 [facility] 11/25 18:48 Order name: Cardiac monitoring; Complete Time: 19:35 [facility] 11/25 18:48 Order name: EKG - Nurse/Tech; Complete Time: 19:35 [facility] 11/25 18:48 Order name: IV Saline Lock; Complete Time: 19:35 [facility] 11/25 18:48 Order name: Labs collected and sent; Complete Time: 20:09 [facility] 11/25 18:48 Order name: O2 Per Protocol; Complete Time: 19:35 [facility] 11/25 18:48 Order name: O2 Sat Monitoring; Complete Time: 19:35 [facility] 11/25 18:56 Order name: Urine Dipstick-Ancillary (obtain specimen); Complete Time: 20:46 11/25 20:44 Order name: CT Traumagram (Head C Spine CAP wo con); Complete Time: 21:54 11/25 22:20 Order name: Vital Signs; Complete Time: 22:51 cp EC:35 Rate is 76 beats/min. Rhythm is regular. MI interval is normal. QRS interval is normal. cp QT interval is normal. T waves are Inverted in lead aVL. Interpreted by me. Reviewed by me. Administered Medications: 20:50 Drug: NS 0.9% 500 ml Route: IV; Rate: bolus; Site: right antecubital; pf1 21:50 Follow up: IV Status: Completed infusion; IV Intake: 500ml pf1 22:57 Drug: NS 0.9% 1000 ml Route: IV; Rate: 75 ml/hr; Site: right antecubital; pf1 Disposition Summary: 11/25/22 22:19 Transfer Ordered Reason: Higher level of care cp Condition: Stable cp Problem: new cp Symptoms: have improved cp Transfer Location: [facility](11/26/22 00:38) cp Accepting Physician: DR Amaya(11/26/22 02:36) pf1 Diagnosis - Acute kidney failure, unspecified cp - Syncope cp Forms: - Medication Reconciliation Form cp - SBAR form cp Signatures: Dispatcher [employer] [facility] Victor M, Monroe, MD MD allen Page, Monroe, PA PA cp Lydia, Nirmal, RN RN bp ansari, Justine, RN RN pf1 Corrections: (The following items were deleted from the chart) 20:49 19:14 Head C Spine CAP W Con+CT.RAD.BRZ ordered. EDMS EDMS 11/26 00:38 12 22:19 Doctor cp cp 11/26 00:38 11/25 22:19 [facility] cp cp 11/26 02:36 00:38 DR Amaya cp pf1
--- NOTE | 2022-11-25 22:19 | ER ---
Nurse's Notes [facility] Name: Enrique Obrien Age: 67 yrs Sex: Male : 1955 Arrival Date: 11/25/2022 Time: 18:46 Bed 3 Private MD: Diagnosis: Acute kidney failure, unspecified;Syncope Presentation: 11/25 18:49 Chief complaint: EMS states: SYNCOPE. Coronavirus screen: At this time, the client does bp not indicate any symptoms associated with coronavirus-19. Ebola Screen: No symptoms or risks identified at this time. Initial Sepsis Screen: Does the patient meet any 2 criteria? HR > 90 bpm. No. Patient's initial sepsis screen is negative. Does the patient have a suspected source of infection? No. Patient's initial sepsis screen is negative. Risk Assessment: Do you want to hurt yourself or someone else? Patient reports no desire to harm self or others. Onset of symptoms was November 25, 2022 at 18:00. Care prior to arrival: Medication(s) given: VERSED 2MG IVP IV initiated. 18 GA, in the right antecubital area, Glucose check: 191. 18:49 Method Of Arrival: EMS: [facility] bp 18:49 Acuity: GHADA 2 bp Triage Assessment: 18:51 General: Appears in no apparent distress. Behavior is cooperative, appropriate for age. bp Pain: Complains of pain in right lateral anterior chest. EENT: No deficits noted. Neuro: Reports a syncopal episode. Cardiovascular: Rhythm is sinus tachycardia. Respiratory: No deficits noted. GI: No signs and/or symptoms were reported involving the gastrointestinal system. : No signs and/or symptoms were reported regarding the genitourinary system. Derm: No deficits noted. Musculoskeletal: No deficits noted. Historical: - Allergies: 18:51 No Known Allergies; bp - Home Meds: 11/26 01:58 carvedilol 25 mg oral tab 1 tab 2 times per day [Active]; tamsulosin 0.4 mg oral cap 1 pf1 cap once daily [Active]; tadalafil 20 mg oral tab 1 tab once daily [Active]; gabapentin 300 mg oral cap 1 cap 3 times per day [Active]; losartan 100 mg oral tab 1 tab once daily [Active]; Januvia 100 mg oral tab 1 tab once daily [Active]; solifenacin 10 mg oral tab 1 tab once daily [Active]; metformin 1,000 mg Oral tab 1 tab 2 times per day [Active]; - PMHx: 11/25 18:51 Diabetes mellitus; Hypertensive disorder; bp 11/26 01:58 erectile dysfunction; pf1 - Immunization history:: Adult Immunizations up to date. - Social history:: Smoking status: unknown. Screenin/26 18:52 [facility] ED Fall Risk Assessment (Adult) History of falling in the last 3 months, bp including since admission Yes- physiologic fall (2 pts) Confusion or Disorientation No (0 pts) Intoxicated or Sedated No (0 pts) Impaired Gait No (0 pts) Mobility Assist Device Used No (0 pt) Altered Elimination No (0 pt) Score/Fall Risk Level 0 - 2 = Low Risk Oriented to surroundings, Maintained a safe environment, Educated pt \T\ family on fall prevention, incl call for assistance when getting out of bed, Hourly rounding (assess needs \T\ fall precautionary measures) done, Used ambulatory aids as needed (educated on \T\ assisted with). Abuse screen: Denies threats or abuse. Denies injuries from another. Nutritional screening: No deficits noted. Tuberculosis screening: No symptoms or risk factors identified. Assessment: 18:52 General: SEE TRIAGE NOTE. bp 19:00 General: Appears in no apparent distress. uncomfortable, well developed, Behavior is pf1 calm, cooperative, appropriate for age, quiet. 19:00 Pain: Complains of pain in right lateral anterior chest Pain currently is 8 out of 10 pf1 on a pain scale. Neuro: Level of Consciousness is awake, alert, obeys commands, Oriented to person, place, time, situation. Cardiovascular: Reports chest pain, since Patient C/O right side chest pain of 8 with cough,onset 2-3 days. Respiratory: Reports cough that is Airway is patent Respiratory effort is even, unlabored, Respiratory pattern is regular, symmetrical, Breath sounds are diminished in right lateral anterior chest. GI: No deficits noted. No signs and/or symptoms were reported involving the gastrointestinal system. GI: Bowel sounds present X 4 quads. Abd is soft and non tender X 4 quads. : No deficits noted. No signs and/or symptoms were reported regarding the genitourinary system. EENT: Reports pain in sore throat. Derm: No deficits noted. No signs and/or symptoms reported regarding the dermatologic system. 21:05 General: Patient taken to [facility]. pf1 22:00 Reassessment: Patient appears in no apparent distress at this time. Patient and/or pf1 family updated on plan of care and expected duration. Pain level reassessed. Patient is alert, oriented x 3, equal unlabored respirations, skin warm/dry/pink. Patient states feeling better. Patient states symptoms have improved. 23:00 Reassessment: Patient appears in no apparent distress at this time. No changes from pf1 previously documented assessment. Patient and/or family updated on plan of care and expected duration. Pain level reassessed. Patient is alert, oriented x 3, equal unlabored respirations, skin warm/dry/pink. Patient states feeling better. Patient states symptoms have improved. 11/26 00:00 Reassessment: Patient appears in no apparent distress at this time. No changes from pf1 previously documented assessment. Patient and/or family updated on plan of care and expected duration. Pain level reassessed. Patient is alert, oriented x 3, equal unlabored respirations, skin warm/dry/pink. Patient states feeling better. Patient states symptoms have improved. 01:00 Reassessment: Patient appears in no apparent distress at this time. No changes from pf1 previously documented assessment. Patient and/or family updated on plan of care and expected duration. Pain level reassessed. Patient is alert, oriented x 3, equal unlabored respirations, skin warm/dry/pink. Patient states feeling better. Patient states symptoms have improved. 02:00 Reassessment: Patient appears in no apparent distress at this time. No changes from pf1 previously documented assessment. Patient and/or family updated on plan of care and expected duration. Pain level reassessed. Patient is alert, oriented x 3, equal unlabored respirations, skin warm/dry/pink. Patient states feeling better. Patient states symptoms have improved. Vital Signs: 11/25 18:49 BP 114 / 70; Pulse 140; Resp 20; Temp 98; Pulse Ox 98% ; bp 20:10 BP 187 / 95; Pulse 93; Resp 25; Temp 98.7; Pulse Ox 94% on R/A; Pain 8/10; pf1 20:45 BP 177 / 108; Pulse 79; Resp 26; Pulse Ox 97% on R/A; pf1 22:00 BP 173 / 91; Pulse 79; Resp 26; Pulse Ox 98% on R/A; pf1 22:45 BP 165 / 96; Pulse 81; Resp 24; Temp 98.3; Pulse Ox 96% on R/A; pf1 23:45 BP 169 / 94; Pulse 79; Resp 26; Pulse Ox 96% on R/A; Pain 0/10; pf1 11/26 00:22 BP 169 / 102; Pulse 89; Resp 24; Pulse Ox 97% on R/A; Pain 0/10; pf1 01:30 BP 160 / 96; Pulse 81; Resp 24; Temp 98.2(O); Pulse Ox 98% on R/A; Pain 5/10; pf1 02:00 BP 157 / 96; Pulse 80; Resp 26; Temp 98.3; Pulse Ox 97% on R/A; Pain 4/10; pf1 ED Course: 11/25 18:46 Patient arrived in ED. bp 18:46 Monroe Dowling PA is PHCP. cp 18:47 Monroe Dow MD is Attending Physician. allen 18:49 Nirmal Freeman, AMANDA is Primary Nurse. bp 18:51 Triage completed. bp 18:51 Arm band placed on. bp 18:52 Patient has correct armband on for positive identification. Bed in low position. Call bp light in reach. Side rails up X2. Adult w/ patient. 18:52 Maintain EMS IV. Dressing intact. Good blood return noted. Site clean \T\ dry. Gauge \T\ bp site: 18 GA R AC. 19:35 XRAY Chest (1 view) In Process Unspecified. EDMS 20:04 Lactate w/ 2H reflex if indic. Sent. pf1 20:04 Basic Metabolic Panel Sent. pf1 20:04 CBC with Diff Sent. pf1 20:04 LFT's Sent. pf1 20:04 Magnesium Sent. pf1 20:04 NT PRO-BNP Sent. pf1 20:04 PT-INR Sent. pf1 20:04 Troponin HS Sent. pf1 20:09 Blood Culture Adult (2) Sent. pf1 20:09 COVID-19/FLU A+B Sent. pf1 20:09 No provider procedures requiring assistance completed. pf1 20:46 Urine Microscopic Only Sent. pf1 21:14 CT Traumagram (Head C Spine CAP wo con) In Process Unspecified. EDMS 22:30 initiated a transfer with Jocelyn from [facility]. Transfer canceled due mw2 for patient not wanting to go that far to the [facility]. 23:29 initiated a transfer with Jude from [facility]. mw2 11/26 00:28 Connected Monroe ALMANZA with the Doctor from [facility]. mw2 00:57 Administrative approval given by Tanya Lilly/ patient has been accepted to [address] bed 325/ Dr. Amaya accepted the patient in transfer/ report to be called to [phone]. 02:32 Patient transferred, IV remains in place. pf1 Administered Medications: 11/25 20:50 Drug: NS 0.9% 500 ml Route: IV; Rate: bolus; Site: right antecubital; pf1 21:50 Follow up: IV Status: Completed infusion; IV Intake: 500ml pf1 22:57 Drug: NS 0.9% 1000 ml Route: IV; Rate: 75 ml/hr; Site: right antecubital; pf1 Medication: 11/26 02:33 VIS not applicable for this client. pf1 Intake: 11/25 21:50 IV: 500ml; Total: 500ml. pf1 Outcome: 22:19 ER care complete, transfer ordered by . fern 11/26 02:29 Transferred by ground EMS to [facility], Note: [facility] pf1 325 Condition: stable Instructed on the need for transfer, Demonstrated understanding of instructions, Patient report given to AMANDA Lin and patient report given to Maycol Silva LP with EMS. 02:36 Patient left the ED. pf1 Signatures: Dispatcher [employer] EDMS Monroe Dow MD MD cha Page, Corey, PA PA Nirmal Freeman, AMANDA PATEL Ever Zamora [facility] Justine ansari, RN RN pf1
[2022-11-25] MEDS ORDERED: NA CHLORIDE 0.9% 1,000 ML ONE (22:59)
[2022-11-26 02:51] VITALS: BP 157/96; TEMP 98.3; O2SAT 97
--- NOTE | 2022-11-26 13:38 | EKG ---
Test Date: 2022-11-25 Test Time: 19:29:48 Process Server: AZAEL MEASUREMENT RESULTS: Intervals: Rate: 76 WI: 132 QRSD: 74 QT: 382 QTc: 429 Smoot: P: 77 WI: 132 QRS: 45 T: 78 INTERPRETIVE STATEMENTS: Normal sinus rhythm Minimal voltage criteria for LVH, may be normal variant Septal infarct, age undetermined Abnormal ECG Compared to ECG 06/20/2022 12:45:12 Left ventricular hypertrophy now present Myocardial infarct finding now present Atrial premature complex(es) no longer present Electronically Signed On 11-26-22 13:37:19 EDUCATION AND TRAINING COORDINATOR by Jayden Quiroz
== END 2022-11-26 02:36 | disposition short-term general hospital (02) ==
LOC: ER 18:04
DX: N17.9 Acute kidney failure, unspecified (principal); Z20.822 Contact with and (suspected) exposure to COVID-19; E11.9 Type 2 diabetes mellitus without complications; I10 Essential (primary) hypertension
CPT/HCPCS: 93005; 87040 ×2; 85025; 80048; 36415; 83735; 85610; 80076; 83605; 84484; 83880; 0240U; 70450; 71250; 72125; 71045; J7040; J7030; 81003; 81015; 96360; 99285

== ENCOUNTER 2023-06-11 06:21 | Day surgery (SDC) | payer OTHER ==
[2023-06-09 15:57] LABS: Absolute Lymphocytes (CBC) 1.2 K/uL (0.7-4.9); Hematocrit 33.7 % (39.6-49.0); Lymphocytes % 21.4 % (15.3-44.8); MCV 107.8 fL (80-100); MPV 7.6 fL (7.6-11.3); RBC Red Blood Cell Count 3.12 M/uL (4.33-5.43)
--- NOTE | 2023-06-09 16:02 | RAD REPORT ---
EXAM DESCRIPTION: RAD - Chest Pa And Lat (2 Views) - 06/09/2023 3:51 pm CLINICAL HISTORY: pre op for surgery COMPARISON: Chest Single View dated 11/25/2022; Chest Pa And Lat (2 Views) dated 06/20/2022; Chest Pa And Lat (2 Views) dated 09/19/2017; Soft Tissue Neck Wo Contr dated 05/30/2023; Head C Spine Cap Wo C on dated 11/25/2022 FINDINGS: Lines: None. Lungs: No evidence of edema or pneumonia. Pleural: No significant pleural effusions or pneumothorax. Cardiac: The heart size is within normal limits. Mediastinum: Within normal limits. Bones: No acute fractures. Other: None IMPRESSION: No acute cardiopulmonary disease.
[2023-06-09 16:12] LABS: Potassium 5.1 mEq/L (3.5-5.1)
[2023-06-09 16:23] LABS: Blood Morphology Comment NOTED (NOT SEEN); Macrocytosis 1+; Platelet Estimate ADEQ; White Blood Cell Scan OK (OK)
--- NOTE | 2023-06-10 20:24 | EKG ---
Test Date: 2023-06-09 Test Time: 15:39:14 Toolmaker: JAY MEASUREMENT RESULTS: Intervals: Rate: 66 UT: 142 QRSD: 78 QT: 394 QTc: 413 [place]: P: 65 UT: 142 QRS: 59 T: 72 INTERPRETIVE STATEMENTS: Normal sinus rhythm with sinus arrhythmia Normal ECG Compared to ECG 11/25/2022 19:29:48 Left ventricular hypertrophy no longer present Myocardial infarct finding no longer present Electronically Signed On 06-10-23 20:21:55 CDT by Jl Castillo
[2023-06-11] MEDS ORDERED: NA CHLORIDE 0.9% 1,000 ML ONE ×2 (06:50→08:51)
[2023-06-11] MEDS ORDERED: FENTANYL CITR 100 MCG/2 ML ONE (07:36)
[2023-06-11] MEDS ORDERED: propofoL 200 MG/20 ML VIAL IV ONE (07:36)
[2023-06-11] MEDS ORDERED: KETOROLAC 30 MG/ML INJ ONE (07:37)
[2023-06-11] MEDS ORDERED: dexAMETHasone 10 MG/ML VIAL ONE (07:37)
[2023-06-11] MEDS ORDERED: MIDAZOLAM HCL 2 MG/2 ML INJ ONE (07:37)
[2023-06-11] MEDS ORDERED: LIDOCAINE 2% MPF 5 ML VIAL ONE (07:37)
[2023-06-11] MEDS ORDERED: ROCURONIUM 50 MG/5 ML VIAL IV ONE (07:37)
[2023-06-11] MEDS ORDERED: ONDANSETRON 4 MG/2 ML VIAL ONE (07:37)
[2023-06-11] MEDS ORDERED: SUCCINYLCHOLINE 20 MG/ML (10 ML) IV ONE (07:49)
[2023-06-11] MEDS: CEFAZOLIN SODIUM 1 GM/VIAL ONE ×2 (07:58→08:04)
[2023-06-11] MEDS: BUPIVACAINE 0.5% PF 10 ML VIAL ONE ×2 (07:59→08:49)
[2023-06-11] MEDS ORDERED: Phenylephrine HCl 10 MG/ML 1 ML VIAL ONE (08:43)
--- NOTE | 2023-06-11 09:35 | P.BOP ---
Preoperative diagnosis: left neck submandibular mass Postoperative diagnosis: same Primary procedure: Excisional biopsy of left neck submandibular mass 4x4cm Estimated blood loss: <10cc Specimen: mass Findings: anterior neck triangle submandibular tander mass Anesthesia: General Complications: None Transferred to: Recovery Room Condition: Good
[2023-06-11 09:38] VITALS: O2SAT 100
[2023-06-11 11:58] VITALS: BP 152/73; TEMP 97.4
--- NOTE | 2023-06-11 12:29 | OP ---
Date of Procedure: 06/11/2023 Surgeon: Edy Pang MD Preoperative Diagnosis: Left neck tender submandibular mass. Postoperative Diagnosis: Left neck tender submandibular mass. Procedure: Excisional biopsy of left neck tender submandibular mass 4 x 4 cm. Estimated Blood Loss: Less than 10 mL. Specimen: Mass. Finding: Anterior neck triangle submandibular tender mass, attached to the muscle, but does not pene trate the muscle. Complications: None. Indication: This is the case of a 67-year-old patient, who comes to us with the left submandibular m ass located in the anterior triangle, increasing in size. We did some imaging, identified the mass. The area is becoming more tender. I discussed the case with the primary doctor and they want that b iopsied and excised. So, I explained to the patient the benefits, alternatives, and risks of excisio n, which include, but not limited to infection, bleeding, damage to adjacent structures, anesthesia c omplication, recurrence, SC, and even . They also understands this may not relieve any symptoms . They might need more than one surgical intervention. They understood, signed a consent. Procedure In Detail: The patient was brought to the operating room, placed in supine position. Anes thesia was done without complication. The left neck was prepped and draped in the usual sterile fash ion. Local anesthetic was applied and then a wedge incision was made in the skin carefully removing this mass away from the muscle itself. It does not penetrate the bone. The mass was completely exci sed in 1 unit. The area was irrigated and then we proceeded to close the area with the combination o f a 3-0 chromic and 3-0 nylon after profuse irrigation and hemostasis was obtained. The patient tole rated the procedure well. Local anesthesia was applied. The patient was sent to recovery in stable condition. EDWARD/WHITNEY Voice ID: [id number] Report ID: [id number]
--- NOTE | 2023-06-11 12:29 | DS ---
Date of Discharge: 06/11/2023 Diagnosis: Left neck submandibular mass. Procedure: Excisional biopsy of left neck submandibular mass. Disposition: Home. Activity: As tolerated. No heavy lifting. Plan: Follow up in my office in 1 week. Call for appointment at [phone]. Keep area dry for 48 keya rs, then do outer dressings and shower, and clean the area with soap and water and put Neosporin oint ment on it. EDWARD/WHITNEY Voice ID: [id number] Report ID: [id number]
== END 2023-06-11 10:33 | disposition home or self-care (01) ==
LOC: OR 06:21
PROVIDERS: ATTEND Surgery
PROC: 0JB50ZZ Excision of Left Neck Subcutaneous Tissue and Fascia, Open Approach (ICD-10-PCS; principal; 2023-06-11 08:30)
DX: L72.0 Epidermal cyst (principal)
CPT/HCPCS: 93005; 85025; 80048; 36415; 82947 ×2; 88304; 71046; 11424; J2704; J2371; J2001; J2250; J3010; J1100; J2405; J7030 ×2; J0690